=== PATIENT | female | born 1955 | race Caucasian/White ===

== ENCOUNTER 2016-06-12 20:22 | Inpatient (IN) | payer BC ==
[~2016-06-12] VITALS: Ht 162.6 cm; Wt 42.3 kg
--- NOTE | ~2016-06-12 | DS ---
PATIENT'S NAME: JOAQUIN REEDER [facility] AGE: 61 Y [address] ROOM: [address] [place], [place] [address] LOCATION: GPCU ADMIT DATE: 06/12/2016 Discharge Summary DISCHARGE DATE: 06/30/2016 FAMILY PHYSICIAN: Enoc Ba MD ATTENDING PHYSICIAN: Mathieu Hayes V ADDENDUM: PRINCIPAL DIAGNOSES: 1. Gram-negative bacteremia. 2. Acute hypoxic respiratory failure secondary to bacterial pneumonia. 3. Bacterial pneumonia. 4. Achromobacter bacteremia. 5. Gastric mass. BRIEF HOSPITAL COURSE: This is a 61-year-old female who came in with respiratory failure and sepsis picture and known to have pleural effusion and pneumonia, and her right lung status post chest tube placement and drainage. Cultures of the pleural fluid growing Streptococcus. The patient also grew Achromobacter in her blood stream as well. The patient had been getting multiple broad-spectrum antibiotics and is currently on meropenem which the Achromobacter bacteremia is sensitive to. The patient is going to continue to get these antibiotics through a PICC line upon transfer to TCU. Infectious Disease to follow during her stay at TCU as well. For details of her hospital stay, please refer to Dr. Branham's discharge summary that was done a few days ago. During my evaluation today, the patient is lying in the chair, awake, alert, and oriented, although somewhat lethargic and deconditioned. Denies any chest pain or shortness of breath. DISPOSITION: Discharged to TCU. Greater than 30 minutes spent on discharge planning and facilitating. MD TRINA FERGUSON/dalia /[id number] d: 07/01/16 1130 t: 07/21/16 0927, DISCHARGE SUMMARY
--- NOTE | ~2016-06-12 | OR ---
PATIENT'S NAME: JOAQUIN REEDER [facility] AGE: 61 Y [address] ROOM: [address] [address] LOCATION: GPCU ADMIT DATE: 06/12/2016 OR/Procedure Report DISCHARGE DATE: 06/30/2016 FAMILY PHYSICIAN: Enoc Ba MD ATTENDING PHYSICIAN: Mathieu Hayes V SURGEON: Jamie Raines DO SUPERVISOR CASE LOADING: DATE OF PROCEDURE: 06/15/2016 PREOPERATIVE DIAGNOSIS: Loculated right pleural effusion, likely parapneumonic. POSTOPERATIVE DIAGNOSES: Loculated right pleural effusion, likely parapneumonic plus empyema. PROCEDURE: Right thoracoscopy with drainage of effusion and division of loculations. REFERRING PHYSICIAN: Pepe Muhammad MD. BRIEF HISTORY: Mrs. Reeder is a 61-year-old white female with the above-noted diagnosis. DESCRIPTION OF PROCEDURE: She had been brought to the operative suite today, sterilely prepped and draped in the usual fashion for right thoracoscopy. She was intubated with a dual-lumen endotracheal tube, placed in the lateral decubitus position for a thoracoscopy. Our 1st port incision was made approximately 3 fingerbreadths below the scapular tip in between the mid and anterior axillary lines. Finger sweep yielded loose adhesive processes. Fluid suction was placed and fluid was aspirated, sent for culture and cytology. The scope was introduced. Diffuse inflammatory process was going on with multiple loculations, mostly gelatinous in nature. There was some evidence of purulence in the pleural space. Two accessory incisions were made anteriorly and posteriorly, and through these, we performed our division of loculations and irrigation of the pleural space. We achieved good freeing up of the lower lobe and upper lobe as well. The space was thoroughly irrigated with approximately 6 L of fluid and then chest tube was placed without difficulty. Ventilations were initiated. Incisions were closed in a layered fashion. Chest tube was secured to the anterior chest wall, and the patient was extubated and transferred to the recovery area in stable condition. JAMIE RAINES DO PATIENT'S NAME: JOAQUIN REEDER [facility] AGE: 61 Y [address] ROOM: [facility] [place], [place] [address] LOCATION: GPCU ADMIT DATE: 06/12/2016 OR/Procedure Report DISCHARGE DATE: 06/30/2016 FAMILY PHYSICIAN: Enoc Ba MD ATTENDING PHYSICIAN: Mathieu Hayes/dalia /[id number] d: 07/01/16 1650 t: 07/02/16 1240, OPERATIVE SUMMARY
--- NOTE | ~2016-06-12 | CON ---
PATIENT'S NAME: JOAQUIN REEDER [facility] AGE: 61 Y [address] ROOM: [address] [address] LOCATION: GPCU ADMIT DATE: 06/12/2016 Consultation DISCHARGE DATE: FAMILY PHYSICIAN: FRANKLIN RUBIO MD ATTENDING PHYSICIAN: LISSET CABA V DATE OF CONSULTATION: 06/17/2016 REFERRING PHYSICIAN: Reed Mcgrath MD REFERRING PHYSICIAN: Lisset Caba M.D. REASON FOR CONSULTATION: Right empyema. HISTORY OF PRESENT ILLNESS: This is a 61-year-old lady with extensive past medical history including COPD, steroid dependency, and extremely brittle bones. About 2 months ago, she had pneumonia and broke a number of ribs while coughing, and had extensive hospitalization and discharged. The patient actually has not improved back to baseline. She has had weakness and not eating much and then getting progressively more tired and shortness of breath. So on June 12, 2016, went to the emergency room in [place]. CT scan showed right-sided loculated pleural effusion, so referred to [facility], seen by CT surgeon, had a right-sided VATS on June 15, 2016. On admission, blood culture obtained, but nothing grew. From the VATS, the pleural fluid culture grew Streptococcus anginosus, which is sensitive to ceftriaxone and penicillin and vancomycin. Currently, the patient is on IV ceftriaxone. The patient has a history of penicillin allergy, but tolerating ceftriaxone, and also history of adverse reaction after taking Levaquin. Today, the patient is still weak, coughing up mucus, but no fever. Had a chest pain on the right side. No abdominal pain. No nausea or vomiting. Had an NG tube with tube feeding. No diarrhea. ID consultation requested for antibiotic management. PAST MEDICAL HISTORY: History of diabetes, COPD, asthma, steroid dependency, hypothyroidism, history of oral thrush, hyperlipidemia, and recent fracture of multiple ribs on the left side. ALLERGIES: PENICILLIN CAUSING HIVES. LEVOFLOXACIN CAUSING TORN ACHILLIS TENDON. MEDICATIONS: Antibiotic kaiser, IV ceftriaxone from yesterday and cefepime from to and fluconazole since . Also, vancomycin from through . PATIENT'S NAME: JOAQUIN REEDER [facility] AGE: 61 Y [address] ROOM: [place] [address] LOCATION: GPCU ADMIT DATE: 06/12/2016 Consultation DISCHARGE DATE: FAMILY PHYSICIAN: FRANKLIN RUBIO MD ATTENDING PHYSICIAN: LISSET CABA V SOCIAL HISTORY: History of smoking, but quit months ago. FAMILY HISTORY: Noncontributory. REVIEW OF SYSTEMS: GENERAL: Fever negative. Chills negative. HEENT: Headache negative. PULMONARY: Cough positive. Sputum positive. CARDIOVASCULAR: Chest pain negative. GI: Abdominal pain negative. Nausea negative. No diarrhea. MUSCULOSKELETAL: Joint pain negative. PHYSICAL EXAMINATION: VITAL SIGNS: Blood pressure 142/75, pulse rate 107, respirations 20, and temperature 98.2. No fever since admission. GENERAL: In [id number]-hexasdya distress. HEENT: Conjunctivae pink. Sclerae not icteric. Also noted mild oral thrush on oral exam. NECK: Supple. LUNGS: Right lung has rhonchi and wheezing noted. HEART: Regular rhythm and rate. ABDOMEN: Bowel sounds positive. No tenderness or rebound tenderness. BACK AND EXTREMITIES: Lower extremity swelling noted. SKIN: No rash noted. LABORATORY DATA: White blood cell 20.0, hemoglobin 8.8, platelets 489. Chemistry: BUN 7, creatinine 0.3. LFT unremarkable. Microbiology: Blood culture on 12 of June no growth and 15 of June showed right empyema. Culture grew Streptococcus anginosus, sensitive to vancomycin, levofloxacin, ceftriaxone, and penicillin. AFB smear negative. Culture pending. Fungal smear negative. ASSESSMENT AND PLAN: This patient is a 61-year-old lady with chronic obstructive pulmonary disease, presented with right empyema status post VATS and culture from the OR grew Streptococcus anginosus sensitive to levofloxacin, ceftriaxone, penicillin, and vancomycin. The patient had a history of penicillin allergy, but tolerating the ceftriaxone at this point, history of adverse reaction from the levofloxacin. No fever noted, but white blood cell still elevated, still chest tube in place. RECOMMENDATIONS: PATIENT'S NAME: JOAQUIN REEDER [facility] AGE: 61 Y [address] ROOM: [place] [address] LOCATION: GPCU ADMIT DATE: 06/12/2016 Consultation DISCHARGE DATE: FAMILY PHYSICIAN: FRANKLIN RUBIO MD ATTENDING PHYSICIAN: LISSET CABA V We will continue IV ceftriaxone, but we will increase the dose to 2 grams q.24 hours and we will continue IV ceftriaxone until chest tube removed. Once chest tube removed, then we will change to IV ceftriaxone to oral cefuroxime 500 mg twice a day and will continue 7 more days. Continue fluconazole for oral thrush per primary. MD ROHAN LOGAN/dalia /[id number] d: 06/17/16 1905 t: 06/18/16 0812, CONSULTATION REPORT
--- NOTE | ~2016-06-12 | DS ---
PATIENT'S NAME: JOAQUIN REEDER [facility] AGE: 61 Y [address] ROOM: [id number] [place], [place] [address] LOCATION: GPCU ADMIT DATE: 06/12/2016 Discharge Summary DISCHARGE DATE: FAMILY PHYSICIAN: Enoc Ba MD ATTENDING PHYSICIAN: Mathieu Hayes V This is a discharge summary form date of admission up until June 24, 2016. The remaining part of the discharge summary from there onwards till discharge will be done by the discharging hospitalist. PRIMARY DIAGNOSES: Include: 1. Sepsis from one alpha hemolytic strep in the pleural fluid as well as from Achromobacter bacteremia. 2. Right loculated pleural effusion. 3. Anorexia. 4. Acute hypoxic respiratory failure. 5. Severe protein-calorie malnutrition. 6. Gastric mass. 7. Severe kyphosis with spine fracture. 8. Chronic obstructive pulmonary disease. 9. Chronic back pain. 10. Constipation. PRINCIPAL PROCEDURES DONE FOR THE PATIENT: Includes PICC line placement as well as right thoracoscopy with decortication by Dr. Ham. LABORATORY DATA: On admission, lactic acid was 1.3. On admission, WBC was 25.6, highest level obtained was 29.0, the last on June 24 was 25.4, H and H on admission was 11.9/36.9, on June 24, it was 8.4/27.8. Platelet count on admission was 690, on June 24, it was 836. Sodium on admission was 136, was stable, it was 138 on June 24. Creatinine on admission was 0.3, remained stable up until June 24 it was 0.3. Bicarb on admission was 28, on June 24 was 21. BUN was stable at 8. Magnesium was stable, on admission was 1.1, was stable at 1.8 on June 24. Albumin was 1.8. Hemoglobin A1c was 6.5. INR was 1.0. Prealbumin was 6. TSH was 1.47. Procalcitonin on admission was 0.22, the repeat was 0.21. MICROBIOLOGY: Blood culture x2 sets, no growth after 5 days. Right lung culture heavy growth for Streptococcus anginosus. Right lung no acid-fast observed. Fungal elements were also negative. Fungal culture was no growth. Repeat blood culture, no growth one set, and the other set was positive for Achromobacter xylosoxidans. Urine culture, no growth after 2 days. RADIOLOGY: Chest x-ray on admission was heart and mediastinum are normal with some aortic tortuosity, clear left lung, large right pleural effusion PATIENT'S NAME: JOAQUIN REEDER [facility] AGE: 61 Y [address] ROOM: [facility] [place] [address] LOCATION: GPCU ADMIT DATE: 06/12/2016 Discharge Summary DISCHARGE DATE: FAMILY PHYSICIAN: Enoc Ba MD ATTENDING PHYSICIAN: Mathieu Hayes V including a loculated component lying in the major fissure measuring about 6-[address] abdomen and pelvis large loculated pleural effusion on the right with infrahilar streaky parenchymal changes, atelectasis versus inflammation versus possible neoplastic involvement. Abnormal stomach shows a very markedly thick wall and a large hiatus hernia that appears to have a central mass seen best on slice #15 cannot exclude gastric carcinoma, constipation. Multiple repeated chest x-rays and KUB following Dobbhoff placement tip of catheter lies in the distal esophagus and last CT of the abdomen with contrast improved pleural parenchymal abnormality at the right chest base with decreased loculated fluid and improvement of the streaky parenchymal opacity. Distended gallbladder is a change from prior study. No particular evidence for inflammation, worsening constipation, no new mass or fluid collection in the abdomen or pelvis. HOSPITAL COURSE: For history of present illness, please take a look at the H and P, which was done by Dr. Hayes. The patient was admitted to Progressive Care Unit was managed for complex right loculated pleural effusion. The patient was started on broad-spectrum antibiotics on the first day of stay started on vancomycin, cefepime, and Levaquin and also did get a Pulmonary consult with Dr. Muhammad and also a Cardiothoracic Surgery consult with Dr. Ham. After the patient was reviewed by Dr. Ham, a right thoracoscopy and decortication was scheduled, and the patient was also seen by Dr. Muhammad and agreed with the antibiotics and continue with prednisone and to wean off oxygen. Two days after admission, the patient had the right thoracoscopy done and decortication, which was well-tolerated by the patient without any intraoperative or postop complication. Following the procedure, the patient was put on a ELECTRIC SERVICEMAN pump, which she continued on for about a week, after which it was discontinued. Given the patient's poor p.o. intake, she had a Dobbhoff placed for tube feeding and also had a electrogalvanizing machine operator consult. Given the anorexia, she was started on Megace with a little improvement in her appetite while she was on Dobbhoff feeding. Ultimately, the right pleural fluid culture came back positive for Streptococcus anginosus; and at this point, the patient's vancomycin was discontinued as well as Levaquin and Zosyn and the patient was started on Rocephin and also did get an ID consult. After the patient was evaluated by Infectious Disease doctor, they increased the dose of Rocephin to 2 g daily for 24 hours to be continued for as long as the patient is to have the chest tube in place and plan was that once the chest tube was removed for the patient to be continued on cefuroxime p.o. for 7 more days. However, following the modification in the antibiotics, it was observed that the patient's white cell count started to trend upward for the next 48 hours; and following this, we did get a repeat blood culture even though the patient had no fevers and we decided to restart the patient back on vancomycin; so at this point, the patient was on vancomycin and Rocephin. Following the addition of the vancomycin, there was some trending down in the white cell count; however, 48 hours after the blood culture was obtained, it became PATIENT'S NAME: JOAQUIN REEDER [facility] AGE: 61 Y [address] ROOM: [place] [address] [facility]: 06/12/2016 Discharge Summary DISCHARGE DATE: FAMILY PHYSICIAN: Enoc Ba MD ATTENDING PHYSICIAN: Mathieu Hayes V positive for gram-negative rods and the patient subsequently had the Rocephin discontinued and was put on cefepime until the sensitivity was obtained, which showed Achromobacter, which was sensitive to Zosyn; however, the patient was allergic to penicillin so this was switched to meropenem and awaiting ID evaluation. Following what appeared to be an improvement in the patient's eating while she was on tube feeding, tube feeding was discontinued. However, thereafter, the patient appetite again dipped and so plan was to start the patient on TPN, which was started on June 23. Regarding the complex right loculated pleural effusion, this was managed by Dr. Ham, the patient had her chest tube in place for approximately 8 days after which it was discontinued following resolution of the effusion; and also at the same time too, she had her ELECTRIC SERVICEMAN pump discontinued. However, her anorexia persisted and so the Megace was titrated upwards to 400 b.i.d. On June 24, 2016, clinically, the patient looked more comfortable and was saturating on room air; however, appetite was still pretty poor. Given the elevation in her white cell count, which appeared to be stable at around 24 or 25,000, we did get a repeat CT abdomen and pelvis with IV contrast, which essentially was unchanged except for worsening of constipation and gallbladder distention. Also, of note is that the initial CT abdomen and pelvis, which was done during the time of admission showed some gastric mass for which GI was called and after they reviewed the patient's old chart which included prior colonoscopy done with biopsy as well as EGD, they recommended that plan for right now is just to monitor the patient and the patient will get a repeat EGD 3-6 months after discharge. The remaining part of the discharge summary will be completed by the discharging doctor. MD SUSAN TAMAYO/dalia /[id number] d: 06/25/16 0344 t: 06/27/16 2223, DISCHARGE SUMMARY
--- NOTE | ~2016-06-12 | HP ---
PATIENT'S NAME: JOAQUIN REEDER [facility] AGE: 61 Y [address] ROOM: [place] [address] LOCATION: GPCU ADMIT DATE: 06/12/2016 History & Physical DISCHARGE DATE: FAMILY PHYSICIAN: PHYSICIAN, UNKNOWN ATTENDING PHYSICIAN: LISSET CABA V DATE OF SERVICE: CHIEF COMPLAINT: Shortness of breath. HISTORY OF PRESENT ILLNESS: The patient is a 61-year-old female with an extensive past medical history most significant for COPD, steroid dependency, as well as extremely brittle bones. The patient has been getting progressively more tired and dyspneic with exertion. Today, she went to the ER in [place]. A CAT scan of her chest with contrast did not reveal a PE, but did show a right-sided loculated pleural effusion. Of note, the patient had a hospital stay approximately 2 months ago, where she broke a number of ribs while coughing and required extensive hospitalization. Subsequent to that, she has been getting stronger at home and was seen by her business librarian, Dr. Muhammad, and was found to have an open "a little pneumonia" on her right as reported by the . She was put on Zithromax and initially improved, but subsequently developed current presentation. The history is mostly provided by the as the patient is quite weak. REVIEW OF SYSTEMS: Negative for any nausea, vomiting, chest pain, or palpitations. All systems have been reviewed and are negative aside from pertinent positives mentioned above. PAST MEDICAL HISTORY: Significant for jjk-sqnxujy-lekeqaron diabetes, advanced COPD, asthma, steroid dependency, candidiasis of the mouth, GERD, hypothyroidism, osteoporosis, degenerative joint disease, congenital scoliosis, hyperlipidemia, vitamin D deficiency, recent fracture of multiple ribs on the left-side as above, B12 deficiency, and hyperparathyroidism. CURRENT MEDICATIONS: 1. Xanax 0.25 mg every 6 hours as needed. 2. Atorvastatin. 3. Azithromycin. 4. Cholecalciferol. 5. Ferrous sulfate. 6. Fluconazole. PATIENT'S NAME: JOAQUIN REEDER [facility] AGE: 61 Y [address] ROOM: [place] [address] LOCATION: GPCU ADMIT DATE: 06/12/2016 History & Physical DISCHARGE DATE: FAMILY PHYSICIAN: PHYSICIAN, UNKNOWN ATTENDING PHYSICIAN: LISSET CABA V 7. Advair. 8. Guaifenesin. 9. Dilaudid 4 mg every 6 hours as needed. 10. Levothyroxine 88. 11. Metformin 500 every morning. 12. Morphine sulfate 30 mg p.o. b.i.d. 13. Pantoprazole. 14. Prednisone at varying doses. 15. Lyrica 150 mg p.o. daily. SOCIAL HISTORY: Significant for [id number]. The patient quit smoking several months ago. FAMILY HISTORY: Reviewed and is noncontributory. PHYSICAL EXAMINATION: VITAL SIGNS: At this point, blood pressure is 150s/80s, heart rate is in 90s, and saturation is 94% on 2 L nasal cannula dropping into mid 80s on room air. She is afebrile. GENERAL: Looks like emaciated elderly female in no acute distress. NEUROLOGICAL: Nonfocal. EYES: Shows pupils are 3-mm and reactive. Extraocular muscle movements are intact. LYMPHATIC: Shows no cervical lymphadenopathy. ENDOCRINE: Shows no thyromegaly. LUNGS: Significant for severely diminished breath sounds in all singh with some crackles at the right base. HEART: Rate is regular. No appreciable murmurs, gallops, or rubs. EXTREMITIES: There is 1+ pitting lower extremity edema. GI: Abdomen is scaphoid, soft, nontender, normoactive bowel sounds. : Reveals no costovertebral angle tenderness. VASCULAR: Exam reveals 2+ pedal pulses. MUSCULOSKELETAL: Exam reveals generalized muscle wasting. PSYCHIATRIC: Exam is significant for slightly depressed mood, but preserved cognition and affect. SKIN: Warm and dry. LABORATORY DATA: Review of studies from the outside facility significant for unremarkable EKG and basic metabolic profile shows albumin of 1.9, alk phosphate of 187, and potassium of 3.4. White count is 31,000, hemoglobin is 11.4, and platelets 644. ABG shows pH 7.48, pCO2 39, pO2 85, and bicarb is 29. ASSESSMENT AND PLAN: PATIENT'S NAME: JOAQUIN REEDER [facility] AGE: 61 Y [address] ROOM: [place] [address] LOCATION: GPCU ADMIT DATE: 06/12/2016 History & Physical DISCHARGE DATE: FAMILY PHYSICIAN: PHYSICIAN, UNKNOWN ATTENDING PHYSICIAN: LISSET CABA V This is a 61-year-old female who will be admitted with: 1. Acute hypoxic respiratory failure due to an empyema/loculated pleural effusion. Please note, the CAT scan was also significant for some atelectasis with a bronchial plugging. The patient will be started on broad-spectrum antibiotics. She does carry history of penicillin allergy, but tolerated Rocephin at the outside hospital. We will put on vancomycin, cefepime, and Levaquin. We will draw blood cultures. We will start her on nebulizers [id number]. We will continue her Advair. We will request a Pulmonology consultation for the patient's business librarian Dr. Muhammad or his group. The patient has been discussed with Dr. Ham by the transferring facility who is aware of the patient and will evaluate for possible video-assisted thoracoscopy. 2. Steroid dependence. We will monitor for development of adrenal insufficiency and treat with stress-dose steroids as needed. 3. High-usage of opioids. I will discuss this with the patient and we will carefully dose her opioids and monitor for respiratory depression/sedation. I believe at this point she has developed quite a tolerance given her normal ABG from outside facility. 4. Type 2 diabetes. We will hold off on metformin as she has got contrast. 5. Esophagitis/gastroesophageal reflux disease. We will continue her on Protonix. 6. Severe protein-calorie malnutrition. This is evident by the patient's body mass index of under 19 and albumin of 1.9. We will get a Nutrition consult and provide her with nutritional supplements. 7. Deep vein thrombosis prophylaxis will be pharmacologic as she has a high- risk for developing deep vein thrombosis. 8. Goals of care. The patient requested to be DNR/DNI, but after a discussion with her and her , we agreed that the appropriate course of action would be DNR, but trial of ventilator if necessary. 9. Additional management will depend on clinical course and recommendations from consultants. Time dedicated to this patient encounter is 35 minutes. MD CHERIE BEATTY/dalia /[id number] D: [id number] T: [id number] HISTORY & PHYSICAL
--- NOTE | ~2016-06-12 | CON ---
PATIENT'S NAME: JOAQUIN REEDER [facility] AGE: 61 Y [address] ROOM: [address] [address] LOCATION: GPCU ADMIT DATE: 06/12/2016 Consultation DISCHARGE DATE: FAMILY PHYSICIAN: FRANKLIN RUBIO MD ATTENDING PHYSICIAN: LISSET CABA V DATE OF CONSULTATION: 06/15/2016 REFERRING PHYSICIAN: Reed Mcgrath MD HOSPITAL CONSULTATION REFERRING PROVIDER: Randy Branham MD REASON FOR CONSULTATION: Abnormal CT scan with questionable hiatal hernia mass. HISTORY OF PRESENT ILLNESS: This is a very pleasant, 61-year-old female with extensive past medical history significant for COPD, steroid dependence as well as extremely brittle bones. The patient had presented to the emergency room at [facility] with progressive lethargy as well as dyspnea with exertion. A CT scan of her chest with contrast showed a right-sided loculated pleural effusion. The patient was then transferred to [facility] and underwent a thoracoscopy with Dr. Ham to the right side. We were asked to see in consultation as there was questionable mass within the patient's hiatal hernia with noted thickening of the patient's lower esophagus and stomach. The patient was seen and examined. The patient does appear to be significantly lethargic as all information was gathered from the patient's . The patient denies any dysphagia. She also underwent a recent upper endoscopy performed by Dr. Jamie Ace on 05/15/2016. She was found to have severe gastroesophagitis, a 7-cm sliding hiatal hernia. She also underwent a colonoscopy at that time, though colon was poorly prepped without any obstruction. Biopsies were obtained of the antrum of the stomach showing chronic gastritis with reactive gastropathy. No dysplasia identified. H. pylori stain was negative. The distal esophagus biopsy was also obtained showed squamous mucosa with focal acute esophagitis and reactive changes. No intestinal metaplasia identified or dysplasia seen. The patient's denies any nausea, vomiting, chest pain, or current shortness of breath. He also denies any rosemary abdominal pain that the patient has complained about. PAST MEDICAL HISTORY: 1. Naj-pkmyzay-olujnuyvm diabetes. 2. COPD. PATIENT'S NAME: JOAQUIN REEDER [facility] AGE: 61 Y [address] ROOM: [address] [place] [id number] LOCATION: GPCU ADMIT DATE: 06/12/2016 Consultation DISCHARGE DATE: FAMILY PHYSICIAN: FRANKLIN RUBIO MD ATTENDING PHYSICIAN: LISSET CABA V 3. Asthma, steroid dependency. 4. Fabiola of the mouth. 5. GERD. 6. Hypothyroidism. 7. Osteoporosis. 8. Degenerative joint disease. 9. Congenital scoliosis. 10. Hyperlipidemia. 11. Vitamin D deficiency. 12. Recent fracture of multiple ribs on the left side. 13. Vitamin B12 deficiency. 14. Hyperparathyroidism. PAST SURGICAL HISTORY: 1. Thoracoscopy performed, 06/15/2016. 2. Hysterectomy. 3. Recent upper endoscopy and colonoscopy, 05/15/2016. SOCIAL HISTORY: Significant for 50-pack year history. She quit smoking several months ago. There is no history of alcohol abuse or illicit drug use. FAMILY HISTORY: The patient's father had Alzheimer's. The patient's mother is alive and lives alone at the age of 9898 years old. Negative for any gastrointestinal diseases to their recollection. ALLERGIES: PENICILLINS AND LEVAQUIN. CURRENT MEDICATIONS: Please refer to the medication administration record. REVIEW OF SYSTEMS: A 10-point review of systems was completed. All were negative except for those identified in the history of present illness. PHYSICAL EXAMINATION: GENERAL: A 61-year-old, lying in bed, who appears to be in no acute distress. VITAL SIGNS: Temperature 98.2, pulse of 97, respirations of 22, blood pressure 155/77, and oxygen saturations 97% on room air. SKIN: [place], warm, and dry. No jaundice. HEENT: Head is normocephalic and atraumatic. Pupils are equal, round, and reactive to light. Sclerae are clear. Nonicteric. Oral mucosa is pink and moist. No thyromegaly. PATIENT'S NAME: JOAQUIN REEDER [facility] AGE: 61 Y [address] ROOM: [address] [place] [id number] LOCATION: GPCU ADMIT DATE: 06/12/2016 Consultation DISCHARGE DATE: FAMILY PHYSICIAN: FRANKLIN RUBIO MD ATTENDING PHYSICIAN: LISSET CABA V NECK: Soft and supple. CARDIOVASCULAR: Regular. Normal S1 and S2. RESPIRATORY: Respirations even and unlabored. LUNGS: Clear to auscultation though diminished on the right side. ABDOMEN: Soft, round, nontender, and nondistended. Bowel sounds positive x4 quadrants. MUSCULOSKELETAL: No muscle weakness or atrophy. EXTREMITIES: No clubbing, cyanosis. NEUROLOGIC: The patient is lethargic though answers questions appropriately. LABORATORY DATA AND IMAGING STUDIES: Labs and Diagnostics: Lactate on admission was 1.3. White blood cell count of 18.3, hemoglobin of 10.3, hematocrit of 34.9, and platelets of 526,000. Chemistry panel includes a glucose of 75, BUN of 5, creatinine 0.2, sodium 147, potassium of 3.2, chloride 107, CO2 of 29, albumin of 1.8, phosphorus of 2.1, and magnesium of 1.9. Hemoglobin A1c is 6.5. Prothrombin time is 10.4, INR is 1.0, and PTT of 30. Pre-albumin was 6. A CT scan completed on 06/14/2016 did show lung bases clear on the left. The right showed a large loculated pleural effusion in addition to right lower lobe streaky parenchymal changes that could reflect volume loss or even neoplastic or inflammatory changes. Liver appears normal. Stomach is abnormal. The hinojosa are very thick at the fundus and there was a large hiatal hernia that appears to have a central mass at the diaphragmatic hiatus suspicious for gastric mass. Differentials did include carcinoma and lymphoma. Bowel mesentery was normal except for constipation involving the right colon or right transverse colon. ASSESSMENT AND PLAN: Again this is a very pleasant, 61-year-old female, whom we were asked to see for abnormal CT scan showing a possible central mass located in the patient's hiatal hernia. Her CT scan was reviewed with Dr. Manjarrez with noted wall thickening throughout the patient's stomach. Her upper endoscopy was also reviewed per Dr. Petra Guerrero as well as pathology that all was negative. At this time, the likely findings are related to the hiatal hernia. We do recommend a followup upper endoscopy in 4 to 6 weeks after recovery from the patient's recent thoracoscopy for the loculated pleural effusion. This was discussed with the patient as well as the patient's as they verbalized understanding. Thank you for this consult and for allowing us to participate in the care of this patient. ELIZABETH KUO APRN FOR PETRA GUERRERO MD PATIENT'S NAME: JAOQUIN REEDER [facility] AGE: 61 Y [address] ROOM: [place] [address] LOCATION: [facility] ADMIT DATE: 06/12/2016 Consultation DISCHARGE DATE: FAMILY PHYSICIAN: FRANKLIN RUBIO MD ATTENDING PHYSICIAN: LISSET CABA/dalia /[id number] d: 06/16/16 1550 t: 07/17/16 1102, CONSULTATION REPORT
--- NOTE | ~2016-06-12 | CON ---
PATIENT'S NAME: JOAQUIN REEDER [facility] AGE: 61 Y [address] ROOM: [address] [address] LOCATION: GPCU ADMIT DATE: 06/12/2016 Consultation DISCHARGE DATE: 06/30/2016 FAMILY PHYSICIAN: Enoc Ba MD ATTENDING PHYSICIAN: Mathieu Hayes V DATE OF CONSULTATION: 06/12/2016 REFERRING PHYSICIAN: Reed Mcgrath MD HISTORY OF PRESENTING ILLNESS: I was contacted by Ms. Reeder from [facility], the patient has a history of chronic obstructive pulmonary disease. She has been followed by Dr. Muhammad, the patient has been complaining over the past couple of months with increased shortness of breath and cough. She has been on multiple antibiotics. She had seen Dr. Muhammad, her entry level manufacturing engineer and she was given antibiotic. Chest x-ray revealed possible right lower lobe infiltrate and possible pleural effusion and the patient was put on antibiotic with no improvement. The patient had presented to the emergency department in [facility]. A CT scan of her chest was done. I reviewed the CAT scan personally after I was contacted by Dr. Ba and it look that there was enhancing loculated pleural effusion very suspicious for empyema. Subsequently, the patient was transferred to [facility] for higher level of care, after questioning the patient, the patient has been as said complaining of increased shortness of breath over the past couple of months and she has been losing weight, she also has been battling thyroid issue, with demineralization of her bone. She is an ex-smoker. She denies any recent fever, but she complains of malaise, tiredness, and fatigue and progressive shortness of breath. REVIEW OF SYSTEMS: A 10-point review of system was done and otherwise negative other than mentioned in the history of presenting illness. PAST MEDICAL HISTORY: Includes: 1. Chronic obstructive pulmonary disease. 2. Noninsulin-dependent diabetes mellitus. 3. Candidiasis of the mouth. 4. Gastroesophageal reflux disease. 5. Hypothyroidism. 6. Osteoporosis. 7. Degenerative joint disease. 8. Congenital scoliosis. 9. Hyperlipidemia. 10. Vitamin D deficiency. PATIENT'S NAME: JOAQUIN REEDER [facility] AGE: 61 Y [address] ROOM: [id number] [place], [place] [address] LOCATION: GPCU ADMIT DATE: 06/12/2016 Consultation DISCHARGE DATE: 06/30/2016 FAMILY PHYSICIAN: Enoc Ba MD ATTENDING PHYSICIAN: Mathieu Hayes V 11. History of fracture of multiple ribs on the left side as mentioned above. 12. Hyperparathyroidism. CURRENT MEDICATIONS: Include: 1. Xanax 0.25 mg every 6 hours as needed. 2. Atorvastatin. 3. Azithromycin. 4. Cholecalciferol. 5. Ferrous sulfate. 6. Fluconazole. 7. Advair. 8. Guaifenesin. 9. Dilaudid 4 mg every 4-6 hours as needed. 10. Levothyroxine. 11. Metformin. 12. Morphine. 13. Pantoprazole. 14. Prednisone. 15. Lyrica. SOCIAL HISTORY: Significant for 50 pack years. The patient quit smoking several months ago. FAMILY HISTORY: Reviewed with no significant family history of lung cancer. Her mother is alive, lives alone, and is 98 years old. Father of Alzheimer's. PAST SURGICAL HISTORY: She had a hysterectomy. PHYSICAL EXAMINATION: GENERAL: Upon initial evaluation, the patient is lying in bed. She is cachectic small lady, does not appear in severe respiratory distress, but she appears tachypneic. VITAL SIGNS: Included SpO2 is 94% on 2 L, her blood pressure is 150/80, heart rate is in the 90s. She is afebrile. EYES: Nonicteric. Pupils are equal, reactive to light and accommodation. HENT: Normocephalic, atraumatic. Wet mucous membranes. No ear or nasal discharge. NECK: Supple. No lymphadenopathy. No jugular venous distention. LUNGS: Decreased air entry on the right with dullness to percussion on the right side with diminished air entry although on the left side. HEART: S1, S2. No murmurs, rubs, or gallops appreciated. PATIENT'S NAME: JOAQUIN REEDER [facility] AGE: 61 Y [address] ROOM: [id number] [place], [place] [address] LOCATION: GPCU ADMIT DATE: 06/12/2016 Consultation DISCHARGE DATE: 06/30/2016 FAMILY PHYSICIAN: Enoc Ba MD ATTENDING PHYSICIAN: Kaganas,Mathieu V ABDOMEN: Soft, nontender, no palpable organs. LOWER EXTREMITIES: No edema. There is +1 pitting edema. No clubbing or cyanosis. VASCULAR: Reveals +2 pedal pulses. MUSCULOSKELETAL: Generalized muscle weakness. LABORATORY DATA: The review of laboratory from outside facility includes unremarkable EKG, BMP shows albumin of 1.9, alkaline phosphate is 107, potassium [place] 3.4[place] [address], hemoglobin is 11.4, and platelets 644. ABG shows pH of 7.48, pCO2 of 39, PO2 of 85, and bicarb of 29. CT scan was reviewed by me also, which revealed an enhancing loculated pleural effusion suspicious for empyema. IMPRESSION: Acute hypoxic respiratory failure. Possible empyema and loculated pleural effusion. At the current point, we will start the patient on broad-spectrum antibiotic including Zyvox, piperacillin/tazobactam, and Levaquin. Cardiothoracic surgery consultation will be obtained secondary to video- assisted thoracoscopic surgery and evacuation. Dr. Jamie Ham was contacted and we will see the patient. Severe chronic obstructive pulmonary disease, currently stable. I do believe the patient has an acute exacerbation. I do believe she has empyema and subsequently she will be treated as such. RECOMMENDATIONS: 1. As mentioned above, we will continue antibiotic. 2. We will start low-dose suspension. 3. VATS as soon as possible. Dr. Jamie Ham probably will take the patient tomorrow. 4. We will continue follow up with you. Thank you for allowing me to participate with this patient. MD ERIS GARNER/dalia /[id number] d: 07/02/16 1709 t: 07/07/16 1251, CONSULTATION REPORT
--- NOTE | ~2016-06-12 | CON ---
PATIENT'S NAME: JOAQUIN REEDER [facility] AGE: 61 Y [address] ROOM: [id number] [place], [place] [address] LOCATION: GPCU ADMIT DATE: 06/12/2016 Consultation DISCHARGE DATE: FAMILY PHYSICIAN: FRANKLIN BA MD ATTENDING PHYSICIAN: LISSET CABA V REFERRING PHYSICIAN: Reed Mcgrath MD Consult to Dr. Temple. REASON FOR CONSULTATION: Joaquin Reeder is a 61-year-old woman with longstanding leukocytosis, thrombocytosis, and somewhat more recent onset of anemia. The consulting hospitalist is concerned the patient has leukemia. HISTORY OF PRESENT ILLNESS: Obtained from Mr. Reeder who is a good historian; Mrs. Reeder who was also a good historian, but somewhat weak; from review of the records forwarded by our colleagues from [place], [place]; from review of the [facility] records; and review of the extensive [facility] record. On 06/25/2016, her white count was 24,600 with 85% neutrophils and 8% lymphocytes. The hemoglobin was 8.3 g/dL, the MCV 82, and the platelets 835,000. Upon admission, on 06/12/2016, the white count was 25,600 with 86% segs and 1% bands. The hemoglobin was 11.1 g/dL, the MCV was 81, and the platelets were 69,000. On 04/08/2012, on a CBC with differential obtained at the [facility], white count was 14,200 with 66% neutrophils and 23% lymphocytes. The hemoglobin was 12.1 g/dL, the MCV was 89, and the platelets were 552,000. The total protein was low at 6.3 g/dL, but the rest of the general chemical profile was unremarkable. The triglycerides were 236 mg/dL, the cholesterol 238 mg/dL, and the LDL cholesterol 112 mg/dL. The glycosylated hemoglobin was 6.6%. The 25-hydroxy D level was low at 23 mg/dL. The patient was seen by Dr. Phani Betancur in Hematology consultation to review the uncharacterized anemia, leukocytosis, and thrombocytosis on 04/28/2016. Multiple records were forwarded including the aforementioned laboratory records. An upper GI endoscopy and colonoscopy had been performed on 03/02/2013 in [place], which revealed a diaphragmatic hernia with distal esophagitis, colon polyp at the cecum, and multiple colon polyps at the sigmoid colon as well as small internal hemorrhoids. The colon biopsy revealed a tubular adenoma in the sigmoid colon and cecum. Esophageal biopsies revealed squamous mucosa with mild reactive changes compatible with gastroesophageal reflux disease. The CBC with differential on 04/16/2016 [place] [address] with a predominance of neutrophils. The hemoglobin was 7 g/dL, the MCV was 71, the platelets were 1,033,000. The reticulocyte count was 3.1% with a corrected reticulocyte count of 1.9% and a reticulocyte production index of 1%. The peripheral smear was reviewed and PATIENT'S NAME: JOAQUIN REEDER [facility] AGE: 61 Y [address] ROOM: [id number] [place] [id number] LOCATION: GPCU ADMIT DATE: 06/12/2016 Consultation DISCHARGE DATE: FAMILY PHYSICIAN: FRANKLIN BA MD ATTENDING PHYSICIAN: LISSET CABA V just revealed a hypochromic microcytic anemia with thrombocytosis and leukocytosis with neutrophilia and monocytosis. 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 There was hyperinflation of the lungs with mild emphysematous changes. There were chronic ununited fractures involving the posterior right 11th and 12th ribs, partially healed fractures involving the posterior right 5th, 6th, and 7th ribs as well as lateral right 8th rib. There was worsening rightward thoracic scoliosis with interval depression of a marked compression fracture deformity to the mid to lower thoracic vertebral body, which appeared to be T8 with mild retropulsion, without critical spinal stenosis. On 04/21/2016, the iron was 29 ug/dL, the iron binding capacity was 392 ug/dL with a transferrin saturation of 7%. The ferritin was 13 ng/mL. The B12 was low at 199 pg/mL, and the serum folate was normal at 11 ng/dL. On 04/22/2016, a CAT scan of the abdomen and pelvis was just remarkable for small bilateral pleural effusions and a diaphragmatic hernia and compression deformities in the T12 and L2 vertebral bodies. Calcified plaque was present in the aorta. A bone scan on 04/22/2016 revealed multiple foci of abnormal activity in the ribs, mid thoracic spine, and upper lumbar spine corresponding to the areas of fracture. Dr. Betancur reviewed this laboratory work on 04/28/2016 and obtained other laboratory. Dr. Betancur obtained a rheumatoid factor which was less than 11 IU/mL and was normal. The haptoglobin was elevated at 287 mg/dL. The parathyroid hormone level was elevated at 81.49 pg/mL. An LDH was 680 U/L with the upper limits of normal being 618. The white count was 29,390. The hemoglobin was 11.4 g/dL, the MCV was 77, and the platelets were 671,000. The manual differential revealed the patient had 92% segs, 4% lymphocytes, 1% monocytes, and 2% bands. Dr. Betancur agreed with the recommendation for iron and vitamin B12 replacement. He agreed with the upper GI endoscopy and colonoscopy. He recommended the patient take calcium and vitamin D replacement as well as denosumab. He made the point a serum protein electrophoresis was normal. He told the patient metastatic cancer to the bone was unlikely. The upper GI endoscopy and colonoscopy were performed on 05/15/2016 and the gross findings were compatible with a 7-cm sliding diaphragmatic hernia and severe gastroesophagitis. The patient's colonoscopy prep was poor. Dark fecal material and solid stool contents were present throughout the colon. The scope was advanced to the cecum. No large masses were identified, and no pathology was identified other than infrequent diverticulosis. On 05/20/2016, Dr. Betancur saw the patient in followup. Dr. Betancur recommended PATIENT'S NAME: JOAQUIN REEDER [facility] AGE: 61 Y [address] ROOM: [address] [address] LOCATION: GPCU ADMIT DATE: 06/12/2016 Consultation DISCHARGE DATE: FAMILY PHYSICIAN: FRANKLIN BA MD ATTENDING PHYSICIAN: LISSET CABA V no further workup. At the time of that visit, the hemoglobin had improved to 11.8 g/dL and the white count was 20,660. The platelets had fallen to 552,000. The patient was in her normal state of health for her in February 2016. 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 She had no formal or informal exercise or rehabilitation program. She could drive the car. She developed dyspnea on exertion if she walked more than 2 blocks, but did not need a cane or a walker. She did not vacuum the house, but otherwise performed all the other household tasks. In March, the patient tripped over their dog's leash, developed a severe cough and had to be hospitalized in [place]. It is felt her fractured ribs and thoracic vertebra were probably related to the fall and cough. To compound her misery, she was dealing with a detached retina which had interfered with her driving. The patient was discharged from the [facility] after treatment for pneumonia and in the week of the Super Bowl was doing somewhat better. Following the Super Bowl, the patient developed progressive dyspnea. She saw Dr. Muhammad who prescribed azithromycin, but her dyspnea on exertion worsened. She reported to the emergency room in [place] where her physician, Dr. rFanklin Ba obtained a CAT scan of the chest and documented a loculated pleural effusion in the right pleural cavity. The patient was anorexic and has lost 20 pounds since her fall and has dyspnea at rest. She was producing sputum, but less than a teaspoon of thick sputum a day. The patient was transferred to [facility] where she was admitted for acute hypoxic respiratory failure. On 06/15/2016, right video-assisted thoracoscopic surgery was performed and a Streptococcus anginosus empyema was noted. The patient's antibiotic spectrum was narrowed to ceftriaxone. Gastroenterology was consulted and recommended a followup upper GI endoscopy 4-6 weeks after 06/16/2015 because of concern about a mass noted on a CAT scan in the esophageal region. They were reassured that an earlier upper GI endoscopy had not revealed any sign of cancer. On 06/23/2016, the chest tube was removed. The patient's white count sundeep, so blood cultures were obtained on 06/20/2016 and revealed a peak Achromobacter xylosoxidans that was sensitive to meropenem, but resistant to ceftriaxone. The patient is currently on meropenem, nystatin, and fluconazole, and will be transferred to a level of care to convalesce. She still complains of dyspnea at rest and can only walk with a walker and standby assist. She is still producing less than a teaspoon of thick clear sputum a day. She continues to PATIENT'S NAME: JOAQUIN REEDER [facility] AGE: 61 Y [address] ROOM: [address] [address] LOCATION: GPCU ADMIT DATE: 06/12/2016 Consultation DISCHARGE DATE: FAMILY PHYSICIAN: FRANKLIN BA MD ATTENDING PHYSICIAN: LISSET CABA V have chronic long-standing heartburn and chronic constipation. Active problems, chronic and diagnosed: 1. Steroid-related osteoporosis, first documented in 2006. The patient has been on teriparatide, alendronate, and possibly denosumab. 2. Chronic obstructive lung disease with an asthma component noted in 1996. The patient has been steroid dependent for years. 3. 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 The patient checks her Accu-Cheks at home and her sugars have been reasonably well controlled. She reports no end-organ damage. 4. Colonic diverticulosis noted on colonoscopy. 5. Hypothyroidism noted in 2001. 6. Hyperlipidemia noted in 2014. 7. Protein calorie malnutrition. The patient's prealbumin upon admission to the hospital was 6 mg/dL. 8. Diaphragmatic hernia, associated with severe gastroesophagitis on upper GI endoscopy in April 2016. 9. Depression, treated with venlafaxine. 10. Osteoarthritis. The patient states this is "minor.". 11. Colonic polyposis. As noted, the patient had a tubular adenoma in the sigmoid colon and cecum on a colonoscopy performed 04/16/2012. 12. Hypovitaminosis D, noted in 2012. 13. Vitamin B12 deficiency noted in March 2016. 14. Atherosclerotic heart disease and atherosclerotic vascular disease with coronary artery calcifications and plaque noted on CAT scan of the chest. 15. Elevated parathyroid hormone level noted in 2011. 16. (?)Cholelithiasis noted on CT scan. 17. Perennial rhinitis. 18. Chronic recurrent Fabiola mucositis. 19. Tobacco use. The patient has smoked 1 pack per day of Cambria for 35 years, but has abstained throughout 2017. ACUTE MEDICAL ILLNESSES (RESOLVED), PAST SURGERIES, INJURIES: 1. 1991, G1, P0, AB1. 2. 1992-total abdominal hysterectomy and bilateral salpingo-oophorectomy for benign ovarian cyst. 3. 2006-right and left cataract extraction. 4. 2016-detached left retina, requiring 2 surgical procedures. 5. 2015-hospitalization in [place] for pneumonia and violent paroxysmal cough leading to rib and thoracic spine fractures. 6. 2017-hospitalization for treatment of empyema. MEDICATIONS UPON ADMISSION: 1. Albuterol inhaler. 2. Alprazolam. [facility] AGE: 61 Y [address] ROOM: [id number] [place] [id number] LOCATION: GPCU ADMIT DATE: 06/12/2016 Consultation DISCHARGE DATE: FAMILY PHYSICIAN: FRANKLIN BA MD ATTENDING PHYSICIAN: LISSET CABA V 3. Atorvastatin. 4. Azithromycin. 5. Calcium carbonate. 6. Cholecalciferol. 7. Cyanocobalamin 1000 mcg IM every 30 days. 8. Ferrous sulfate 325 mg p.o. t.i.d. 9. Fluconazole 100 mg p.o. daily. ADVERSE REACTIONS TO MEDICATIONS, TRANSFUSIONS, ALLERGIES: 1. Penicillin associated with hives. 2. Fluoroquinolones associated with Achilles tendon rupture. 3. The patient had packed red blood cell transfusions in [place] in March 2016. TOBACCO: 1/2 pack per day for 35 years, [facility], abstained since March 2017. ALCOHOL: 1. None since 1986. 2. The patient rarely consumed alcohol prior to 1986, but did not totally abstain. CAFFEINE: Two cups coffee per day. IMMUNIZATIONS: 1. Positive influenza virus vaccine. 2. Positive pneumococcal vaccine. 3. Negative tetanus toxoid booster. 4. Positive varicella zoster virus vaccine. FAMILY HISTORY: Negative for hematologic or oncologic disorders. SOCIAL HISTORY: The patient was born and raised a [place], [place]. She went to college for a year. 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 They have a 27-year-old adopted daughter who lives in [place], [place]. They are [employer]. REVIEW OF SYMPTOMS: Otherwise unremarkable. The patient was unaware she had any abnormalities of her peripheral blood work until she saw Dr. Betancur in April. PATIENT'S NAME: [facility] AGE: 61 Y [address] ROOM: [id number] [place], [place] [address] LOCATION: GPCU ADMIT DATE: 06/12/2016 Consultation DISCHARGE DATE: FAMILY PHYSICIAN: FRANKLIN BA MD ATTENDING PHYSICIAN: LISSET CABA V PHYSICAL EXAMINATION: VITAL SIGNS: Pulse 96 and regular, blood pressure 130/75, respiratory rate 18, temperature 98.2. Height upon admission on 06/13/2016 64 inches, weight 43 kg, 95 pounds, BMI 16.2 kg/m2. GENERAL: Well-developed, underweight, chronically ill, 61-year-old, female who appears older than her stated age. HEENT: Unremarkable. LYMPH NODES: None palpable. NECK: Without JVD or carotid bruits. CHEST: Decreased breath sounds. Well-healed incision site where the chest tube in place. CV: Decreased S1, S2. No murmurs, bruits, or adventitious sounds. BREASTS: Not examined. ABDOMEN: Healed hysterectomy scar. Bowel sounds present but decreased. No masses, tenderness, or organomegaly, although the patient is examined sitting in her chair. EXTREMITIES: Lower extremity varicosities. Ulnar deviation of the right 2nd through 5th metacarpophalangeal joints. NEURO: The patient moves all 4 extremities and is alert and appropriate. IMPRESSION: 1. A 61-year-old woman with a 4-year plus history of leukocytosis and thrombocytosis, a 3-month history of hypoplastic generally normocytic anemia, a documented B12 and iron deficiency, an elevated C-reactive protein, seen during hospitalization for evaluation and treatment of a Streptococcus anginosus empyema and Achromobacter xylosoxidans bacteremia. The patient has been on longstanding steroids generally 10- 20 mg a day for reactive airways disease and has a history of severe gastroesophagitis. There has been no documentation of blood loss. 2. Multifactorial anemia due to a low iron, low B12, inflammation, and possible blood loss. 3. Neither the cause of the low B12 nor the iron deficiency has been characterized. The patient may have malabsorption. 4. The thrombocytosis could be aggravated by the inflammation, but given its duration and its presence 4 years ago when the patient did not have an evident inflammatory disorder, the possibility of a concurrent myeloproliferative disorder exists. 5. The chance of chronic myelogenous leukemia seems low and the chance of acute leukemia seems nil. 6. The osteoporosis and bone fractures and back pain are probably completely related to her long-standing steroids. Of course, osteoporosis and normocytic anemia can be associated with immunoproliferative disorders. It is encouraging a serum protein electrophoresis has apparently been unremarkable, although that result is not available on the record. 7. It is reasonable to work up the possibility of malabsorption and rule out PATIENT'S NAME: JOAQUIN REEDER [facility] AGE: 61 Y [address] ROOM: [place] [address] LOCATION: [facility] ADMIT DATE: 06/12/2016 Consultation DISCHARGE DATE: FAMILY PHYSICIAN: FRANKLIN BA MD ATTENDING PHYSICIAN: LISSET CABA V myeloproliferative or immunoproliferative disorders that conceivably could be contributing to her problems. However, her long-standing steroids and inflammatory condition could be entirely responsible for the anemia, leukocytosis, and thrombocytosis. RECOMMEND: 1. Diagnostic:. a. Hemoccult stools x3. b. Serum protein electrophoresis and serum free light chains. c. JAK2 mutation assay. d. Anti-intrinsic factor and antiparietal cell antibodies. e. Quantitative immunoglobulins. f. Tissue transglutaminase antibody IgA. 2. Treatment:. a. No change in current treatment. 3. Patient education:. a. Discussed the differential diagnosis of her anemia, low iron, and B12. b. Acknowledged we cannot prove a negative, but told her it seemed very unlikely she has a hematologic or oncologic disorder that will significantly shorten her life span. This possibility was on her mind. REED LARSON MD GKB/modl /[id number] CC: MD Franklin Sandoval MD William Terrell, MD d: 06/27/161926 t: 06/29/161854, CONSULTATION REPORT
--- NOTE | ~2016-06-12 | CON ---
PATIENT'S NAME: JOAQUIN RE[facility] AGE: 61 Y [address] ROOM: [id number] [place], [place] [address] LOCATION: GPCU ADMIT DATE: 06/12/2016 Consultation DISCHARGE DATE: FAMILY PHYSICIAN: FRANKLIN RUBIO MD ATTENDING PHYSICIAN: LISSET CABA V DATE OF CONSULTATION: 06/24/2016 LOCATION: [facility], [facility]. REFERRING PHYSICIAN: Randy Branham MD This is a palliative care consult for patient and family support. HISTORY OF PRESENT ILLNESS: This 61-year-old female was admitted on 06/12/2016 with increasing shortness of breath. She has had a decline since right after Price and was hospitalized on April 20 for falls. She was admitted to the [facility], had decreased appetite, declined, but did get feeling better, was gaining weight, and went home, was doing well until after the [place] republican. She began to have more shortness of breath, not eating, had seen Dr. Muhammad, and was found to have pneumonia, was put on Zithromax, improved a little, and then just continued to decline, getting weaker and not eating, and was admitted to [facility] on 06/12. She has a known history of COPD with steroid dependency, extremely brittle bones. Currently, denies any nausea or vomiting. Just does not feel like eating anything. Complains of some back and right side pain, achy, constant. Has taken narcotics in the past. Was recently changed to Nucynta routinely. Gets very short of breath with much exertion. Complains of severe fatigue, and any activity makes her very weak and tired. She has a recent history of multiple rib fractures on the left side, and CT showed compression fracture, mid thoracic vertebrae, vertebral body on T8. PAST MEDICAL HISTORY: Non insulin-dependent diabetes, advanced COPD, asthma, steroid dependency, candidiasis of the mouth, GERD, hypothyroidism, osteoporosis, degenerative joint disease, congenital scoliosis, hyperlipidemia, vitamin D deficiency, recent fracture of multiple ribs on the left side, B12 deficiency, and hypoparathyroidism. CURRENT MEDICATIONS: 1. Megace 400 mg b.i.d. PATIENT'S NAME: JOAQUIN [facility] AGE: 61 Y [address] ROOM: [address] [place] [id number] LOCATION: GPCU ADMIT DATE: 06/12/2016 Consultation DISCHARGE DATE: FAMILY PHYSICIAN: FRANKLIN RUBIO MD ATTENDING PHYSICIAN: LISSET CABA V 2. Bisacodyl 10 mg suppository p.r.n. constipation. 3. Meropenem 500 mg IV. 4. TPN lipids. 5. Nucynta 50 mg t.i.d. 6. Lexapro 2.5 mg daily. 7. Melatonin 3 mg at h.s. 8. Ondansetron 4 mg a.c. IV. 9. Ipratropium albuterol inhalation q.i.d. 10. Prednisone 5 mg daily. 11. MiraLAX 17 g daily. 12. Acetaminophen and hydrocodone or [place] 5/325 two tablets every 4 hours p.r.n. 13. Insulin moderate sliding scale. 14. Heparin 5000 units b.i.d. 15. Atorvastatin 40 mg daily. 16. Fluconazole 100 mg daily. 17. Pregabalin 150 mg daily. 18. Levothyroxine 88 mcg daily. 19. Dulera 200 mcg inhalation b.i.d. 20. Florastor 200 mg b.i.d. 21. Acetaminophen 650 mg daily. 22. Guaifenesin 1200 mg b.i.d. 23. Protonix 40 mg b.i.d. ALLERGIES: PENICILLINS AND LEVOFLOXACIN. SOCIAL HISTORY: She is , lives at [place], has one adopted daughter who lives in [place]. Smoking history: 16-kgoq-mxk-year history, quit in March 2016. Alcohol: No alcohol use. FAMILY HISTORY: Mother is alive, lives alone, and is 98 years old. Father of Alzheimer's. PAST SURGICAL HISTORY: She had a hysterectomy. REVIEW OF SYSTEMS: Done and is negative except as mentioned in the HPI and listed below. HEENT: Denies any soreness in her mouth. Does have a history of thrush. Has been on fluconazole for her thrush. No difficulty swallowing. RESPIRATORY: She is very short of breath with much exertion. CARDIAC: No chest pain or chest palpitations. PATIENT'S NAME: JOAQUIN [facility] AGE: 61 Y [address] ROOM: [address] [place], [place] [address] [facility] ADMIT DATE: 06/12/2016 Consultation DISCHARGE DATE: FAMILY PHYSICIAN: FRANKLIN RUBIO MD ATTENDING PHYSICIAN: LISSET CABA V GASTROINTESTINAL: No nausea or vomiting. Currently, does get nauseated in the morning. Last bowel movement was on 06/23. No diarrhea or constipation. PSYCHIATRIC: Does have a history of some depression. Very depressed since been in the hospital quite a bit since 1st of the year and is not getting better. Gets tearful. Had been on Effexor at home and had some instances of shaking with her feet prior to being on, was recently switched to Lexapro. Gets very teary eyed when talking about condition. Does not feel like she is going to get better. States if she does not get stronger, does not want to live like this. PHYSICAL EXAMINATION: GENERAL: This is a frail, 61-year-old female. VITAL SIGNS: Temperature 98.2, pulse 99, respirations 26, blood pressure 139/74, and O2 saturation is 98%. GENERAL: Alert and oriented, in no acute distress. SKIN: Warm and dry. Color pale. HEENT: Head is normocephalic and atraumatic. Sclerae are nonicteric. Conjunctivae pale and pink. Mouth is pink and moist. White patches noted on tongue and cheeks. LYMPHATIC: No cervical adenopathy or thyromegaly. RESPIRATORY: Coarse bilaterally. Diminished. Breath sounds even and regular at rest. CARDIAC: S1 and S2 without murmurs or bruits. No lower extremity edema. ABDOMEN: Soft and nontender. Positive bowel tones. No hepatosplenomegaly. NEUROLOGIC: Grossly intact. No focal deficits. MUSCULOSKELETAL: Appropriate range of motion without deficit. Decreased muscle mass. Tires easily with ambulation. EXTREMITIES: No cyanosis or deformities. Palliative Performance Scale is 50%, mainly sitting and lying, unable to do most activity, total care, minimal to sips intake. Conscious level is full. IMPRESSION: 1. Depression. 2. Weakness. 3. Fatigue. 4. Dyspnea. 5. Oral candidiasis. PLAN: Met with the patient and her . Discussed the patient's overall condition declining since [place], patient's feeling just not getting better, etc. The patient and have a good understanding of her chronic condition, her chronic obstructive pulmonary disease. PATIENT'S NAME: [facility]IN [facility] AGE: 61 Y [address] ROOM: [address] [place], [place] [address] LOCATION: GPCU ADMIT DATE: 06/12/2016 Consultation DISCHARGE DATE: FAMILY PHYSICIAN: FRANKLIN RUBIO MD ATTENDING PHYSICIAN: LISSET CABA V DISCUSSION OF GOALS: 1. To try to get to eating more so she will get stronger. 2. To go to a [facility] place to try to increase strength so she can get back home. The patient is on the TCU list. Discussed possible other options. The patient does not want to go back hand to home. She would like the [facility] swing bed at this time. Discussed the patient's feelings of depression and down and frustration. Asked if she would like to speak with a counselor, and she states "no.". 3. Code status and advance directive. The patient want no CPR. Would like to be ventilated. Does have a copy of an advance directive. will try to bring in tomorrow. RECOMMENDATIONS: 1. Candidiasis, is currently on fluconazole, has been on for a few weeks. May consider adding saline rinses, may help clean her mouth a little better. May consider nystatin if no improvement after being on fluconazole for a while. 2. Anorexia. The patient is currently on Megace. Recently, dose was increased. Discussed possible alternatives. We will have Dietary stop by and talk with the patient on maybe some protein powder to add to food to help increase the patient's dietary protein levels. May consider some mirtazapine if Megace is not improving appetite. 3. Depression: Currently, is on Lexapro. The patient refused psychiatric consult at this time. We will continue to support the patient and her family. Total time was 60 minutes, with 50 minutes for counseling and coordination of care. TRACY ROY NP FOR MD RENALDO TRAN/modl /[id number] d: 06/25/16 1333 t: 07/03/16 0720, CONSULTATION REPORT
--- NOTE | ~2016-06-12 | CON ---
PATIENT'S NAME: JOAQUIN RE[facility]ER [facility] AGE: 61 Y [address] ROOM: [place] [address] LOCATION: GPCU ADMIT DATE: 06/12/2016 Consultation DISCHARGE DATE: 06/30/2016 FAMILY PHYSICIAN: Enoc Ba MD ATTENDING PHYSICIAN: Carlo Mckinnon DATE OF CONSULTATION: 06/13/2016 REFERRING PHYSICIAN: Reed Mcgrath MD REQUESTING PHYSICIAN: Pepe Muhammad M.D. REASON FOR CONSULTATION: Right pleural effusion. HISTORY OF PRESENT ILLNESS: The patient is a 61-year-old white female, who was admitted to [facility] following a transfer from [facility] for acute respiratory failure. The patient has been in a weakened state with increasing shortness of breath, cough, and weight loss. The patient has had a recent respiratory infectious process that did not resolve with antibiotic therapy. She went to the [facility] with these complaints and a CT scan revealed a right-sided loculated pleural effusion, likely parapneumonic. She was transferred here for higher level of care. The patient has been on steroid therapy, antibiotic therapy. She does currently complain of the thrush to the mouth. She has had such severe coughing that last month she broke several left-sided ribs from coughing. She was admitted by Hospitalist Services. She has been seen by Pulmonology. They do ask Dr. Raines to see the patient regarding remediation of the pleural fluid, possible decortication. PAST MEDICAL HISTORY: Illnesses: COPD, anemia, asthma, vitamin B12 deficiency, hypothyroidism, severe osteoporosis, tobacco abuse, diabetes mellitus type 2, GERD, degenerative joint disease, high-risk medications, steroids, scoliosis, dyslipidemia, vitamin D deficiency, and hyperparathyroidism. Surgeries/Procedures: Hysterectomy. ALLERGIES: PENICILLIN AND LEVOFLOXACIN. SOCIAL HISTORY: The patient is . She and her reside in [place], [place]. She has a daughter. She has been a longstanding smoker, having smoked for 50 years at least a pack a day. She quit smoking few weeks back. She does work PATIENT'S NAME: JOAQUIN RE[facility] AGE: 61 Y [address] ROOM: [place] [address] LOCATION: GPCU ADMIT DATE: 06/12/2016 Consultation DISCHARGE DATE: 06/30/2016 FAMILY PHYSICIAN: Enoc aB MD ATTENDING PHYSICIAN: Carlo Mckinnon as a teaching aide. She does not abuse alcohol. FAMILY HISTORY: Her father had history with Alzheimer's and did complications from the disease. Her mother is alive and well. MEDICATIONS: Please see medication administration record. REVIEW OF SYSTEMS: A 10-point review of systems was completed with negative findings other than those mentioned in HPI. PHYSICAL EXAMINATION: VITAL SIGNS: Blood pressure 137/84, pulse is 98, respirations 17, temperature 98.1, and O2 saturations 94% on 2 L. Height is 162.6 cm. Weight is 43 kg. GENERAL: The patient is pleasant. She does appear older than her stated age. She also appears nutritionally compromised. HEENT: Normocephalic with EOMIs intact. LUNGS: Clear to diminished throughout. CARDIOVASCULAR: Tachy, but regular. ABDOMEN: Soft, nontender by 4 quadrants with positive bowel sounds throughout. EXTREMITIES: No overt varicosities or edema. NEUROLOGIC: Alert and oriented. Symmetrical strength. LABORATORY AND TEST RESULTS: As per HPI. IMPRESSION AND PLAN: Loculated right pleural effusion, likely parapneumonic with empyema. Dr. Raines discussed VATS procedure versus an open thoracotomy with decortication. Risks and benefits of the procedure were discussed with the patient and her . Placement of chest tube was discussed. The patient does wish to proceed with surgical intervention. We would like to thank Pulmonary Services for allowing us to participate in the care of this very pleasant woman. QUAN GUSMAN APRN FOR MASOUD RAINES, DO DLQ/modl PATIENT'S NAME: JOAQUIN RE[facility] AGE: 61 Y [address] ROOM: [address] [place] [id number] LOCATION: GPCU ADMIT DATE: 06/12/2016 Consultation DISCHARGE DATE: 06/30/2016 FAMILY PHYSICIAN: Enoc Ba MD ATTENDING PHYSICIAN: Carlo Mckinnon /[id number] d: 07/15/160 t: 07/16/16 1531, CONSULTATION REPORT
[2016-06-12] MEDS ORDERED: HYDROMORPHONE HC4 MG PO (20:58)
[2016-06-12] MEDS ORDERED: GLUCOPHAGE500 MG PO (20:58)
[2016-06-12] MEDS ORDERED: LYRICA 150MG C150 MG PO (20:59)
[2016-06-12] MEDS ORDERED: PROTONIX40 MG PO (21:00)
[2016-06-12] MEDS ORDERED: DIFLUCAN100 MG PO (21:00)
[2016-06-12] MEDS ORDERED: LEVOTHROID (SY88 MCG PO (21:01)
[2016-06-12] MEDS ORDERED: DELTASONE5 MG PO (21:04)
[2016-06-12] MEDS ORDERED: LIPITOR40 MG PO (21:05)
[2016-06-12] MEDS ORDERED: XANAX0.25 MG PO (21:06)
[2016-06-12] MEDS ORDERED: ZITHROMAX250 MG PO (21:06)
[2016-06-12] MEDS ORDERED: MS CONTIN30 MG PO (21:06)
[2016-06-12] MEDS ORDERED: MUCUS ER1200 MG PO (21:08)
[2016-06-12] MEDS ORDERED: VITAMIN D1000 UNI1 PO (21:10)
[2016-06-12] MEDS ORDERED: IRON325 M1 PO (21:11)
[2016-06-12] MEDS ORDERED: ADVAIR 500-501 EACH INH (21:11)
[2016-06-12] MEDS ORDERED: TUMS ULTRA ST1177 MG (21:14)
[2016-06-12 23:28] LABS: HEMATOCRIT 36.9 % (33.0-46.0); HEMOGLOBIN 11.1 g/dL (10.0-15.0); MCH 24.3 pg (27.0-34.0); MCHC 30.1 gm/dL (32.0-36.5); MCV 80.9 fl (83.0-98.0); MPV 8.8 fl (9.4-12.4); PLATELET COUNT 690 K/uL (150-450); RBC 4.56 M/uL (3.50-5.50); RDW-CV 21.9 % (11.9-14.6)
[2016-06-12 23:32] LABS: WBC 25.6 K/uL (4.0-11.0)
[2016-06-12 23:50] LABS: ALK PHOS 159 IU/L (33-138); ALT 17 IU/L (12-78); AST 22 IU/L (10-40); BLOOD UREA NITROGEN 8 mg/dL (6-24); CALCIUM 8.3 mg/dL (8.5-10.5); CHLORIDE 97 mMol/L (96-110); CO2 28 mMol/L (22-32); CREATININE 0.3 mg/dL (0.5-1.1); ESTIMATED GFR (MDRD EQUATION) > 60; MAGNESIUM 1.9 mg/dL (1.3-2.6); PHOSPHORUS 2.7 mg/dL (2.5-4.9); SODIUM 138 mMol/L (135-145); TOTAL BILIRUBIN 0.3 mg/dL (0.0-1.5)
[2016-06-12 23:52] LABS: ALBUMIN 1.8 gm/dL (3.5-5.0)
[2016-06-12 23:59] LABS: BANDED NEUTROPHILS % 4 %; LYMPHOCYTE # 1.5 K/uL (0.8-4.0); LYMPHOCYTE % 6 %; SEGMENTED NEUTROPHIL % 86 %
--- NOTE | 2016-06-13 04:47 | NUR ---
Pt arrives to PCU by EMS from [facility]. Pt A/Ox3, states she is a little "foggy". Pt admitted d/t increasing shortness of breath and difficulty breathing over last couple days. Pt has a history of asthma and a recent pneumonia. Pt is A/Ox3. VSS upon arrival. C/O rib pain d/t a recent fall resulting in a fracture. Arrives to PCU on 2L/NC, lungs coarse throughout. Will be started on IV antibiotics and breathing treatments.
--- NOTE | 2016-06-13 06:37 | NUR ---
Significant events: Pt A/Ox3, forgetful at times. VSS. On 2L/NC. IV antibiotics started. Breathing treatments continue. Up SBA. MS contin for back/rib pain. PO dilaudid x1. Slept most of shift.
[2016-06-13] MEDS ORDERED: DELTASONE5 MG PO (11:07)
[2016-06-13] MEDS ORDERED: VITAMIN B-1000 MCG/M IM (11:09)
[2016-06-13] MEDS ORDERED: PROVENTIL OR V6.7 GM INH (11:10)
[2016-06-13] MEDS ORDERED: ALBUTEROL2.5 MG/31 INH (11:10)
[2016-06-13] MEDS ORDERED: VIACTIV SOFT C1 EACH PO (11:11)
[2016-06-13] MEDS ORDERED: ANTACID CHEWAB1 EACH PO (11:11)
[2016-06-13] MEDS ORDERED: FIBER THERAPY660 GM PO (11:12)
[2016-06-13] MEDS ORDERED: EFFEXOR XR75 MG PO (11:35)
--- NOTE | 2016-06-13 15:58 | NUR ---
Significant Event: A/O. VSS on 2L. Chronic pain tolerable with scheduled pain meds. Up with 1 assist and walker. Very dyspneic with activity. Encouraging nutrition. assists with cares. Follow up: thoracoscopy vs vats procedure wednesday
[2016-06-13 17:04] LABS: BASOPHIL # 0.1 K/uL (0.0-0.2); BASOPHIL % 0.3 %; HEMATOCRIT 33.8 % (33.0-46.0); HEMOGLOBIN 10.1 g/dL (10.0-15.0); IMMATURE GRANULOCYTE # 0.2 K/uL (0.0-0.3); IMMATURE GRANULOCYTE % 0.8 %; LYMPHOCYTE # 0.6 K/uL (0.8-4.0); LYMPHOCYTE % 2.4 %; MCH 24.6 pg (27.0-34.0); MCHC 29.9 gm/dL (32.0-36.5); MCV 82.4 fl (83.0-98.0); MONOCYTE # 0.9 K/uL (0.0-1.0); MONOCYTE % 3.8 %; MPV 8.7 fl (9.4-12.4); NEUTROPHIL # (ANC) 21.5 K/uL (1.8-7.8); NEUTROPHIL % 92.7 %; NRBC % 0 /100WBC (0-0.00); RDW-CV 22.1 % (11.9-14.6)
[2016-06-13 17:05] LABS: PLATELET COUNT 545 K/uL (150-450); WBC 23.2 K/uL (4.0-11.0)
[2016-06-13 17:29] LABS: ANION GAP 13.2 (10.0-19.0); BLOOD UREA NITROGEN 9 mg/dL (6-24); CHLORIDE 100 mMol/L (96-110); CO2 30 mMol/L (22-32); CREATININE 0.4 mg/dL (0.5-1.1); ESTIMATED GFR (MDRD EQUATION) > 60; POTASSIUM 3.2 mMol/L (3.7-5.1); SODIUM 140 mMol/L (135-145)
[2016-06-14 03:51] LABS: BASOPHIL % 0.2 %; HEMATOCRIT 33.4 % (33.0-46.0); HEMOGLOBIN 9.9 g/dL (10.0-15.0); IMMATURE GRANULOCYTE # 0.2 K/uL (0.0-0.3); IMMATURE GRANULOCYTE % 0.9 %; LYMPHOCYTE # 1.5 K/uL (0.8-4.0); LYMPHOCYTE % 7.1 %; MCH 24.3 pg (27.0-34.0); MCHC 29.6 gm/dL (32.0-36.5); MCV 81.9 fl (83.0-98.0); MONOCYTE % 4.5 %; MPV 9.3 fl (9.4-12.4); NEUTROPHIL # (ANC) 18.8 K/uL (1.8-7.8); NEUTROPHIL % 87.3 %; NRBC % 0 /100WBC (0-0.00); PLATELET COUNT 641 K/uL (150-450); RBC 4.08 M/uL (3.50-5.50); RDW-CV 21.8 % (11.9-14.6); WBC 21.6 K/uL (4.0-11.0)
[2016-06-14 04:05] LABS: ANION GAP 12.6 (10.0-19.0); BLOOD UREA NITROGEN 7 mg/dL (6-24); CHLORIDE 104 mMol/L (96-110); CO2 29 mMol/L (22-32); CREATININE 0.3 mg/dL (0.5-1.1); ESTIMATED GFR (MDRD EQUATION) > 60; POTASSIUM 3.6 mMol/L (3.7-5.1); SODIUM 142 mMol/L (135-145)
--- NOTE | 2016-06-14 05:26 | NUR ---
Significant Event: A/0X3. FORGETFUL. RESTED IN BED ALL OF SHIFT. TURNS SELF. AFEBRILE. VSS ON 2L. SCHEDULED MS CONTIN AND DILUADID PO GIVEN FOR CHRONIC PAIN. LAST DOSE OF DILUADID WAS AT 0032. PATIENT WAS ABLE TO FIND RELIEF AND NO C/O OF PAIN THE REST OF THE SHIFT. IV TO L) AC HAS VANCO RUNNING. CONTINUE WITH IV ANTIBITOICS. PATIENT WAS INCONTINENT OF URINE X2. NO BM THIS SHIFT. 2 DOSE OF 40 MEQ OF KCL GIVEN FOR K OF 3.2. Follow up: CONTINUE WITH PLAN OF CARE.
--- NOTE | 2016-06-14 17:08 | NUR ---
Significant Event: A/O. VSS on 2L/NC. Incontinent of urine x1. Pain controlled with prn dilaudid and scheduled ms contin. Up with 1 assist and walker. at bedside. Plan for [address] Ham. GI consult for abnormal abdominal CT. Need to get records from EGD that was done by Dr Ace from [facility] [place]. states she also had an abdominal CT done in [place] in March. New IV to R) hand. Follow up:
[2016-06-15 03:24] LABS: BASOPHIL % 0.2 %; HEMATOCRIT 34.9 % (33.0-46.0); HEMOGLOBIN 10.3 g/dL (10.0-15.0); IMMATURE GRANULOCYTE # 0.2 K/uL (0.0-0.3); LYMPHOCYTE # 1.5 K/uL (0.8-4.0); LYMPHOCYTE % 7.9 %; MCH 24.5 pg (27.0-34.0); MCHC 29.5 gm/dL (32.0-36.5); MCV 83.1 fl (83.0-98.0); MONOCYTE % 5.4 %; NEUTROPHIL # (ANC) 15.7 K/uL (1.8-7.8); NEUTROPHIL % 85.5 %; NRBC % 0 /100WBC (0-0.00); PLATELET COUNT 526 K/uL (150-450); RDW-CV 21.9 % (11.9-14.6)
[2016-06-15 03:25] LABS: WBC 18.3 K/uL (4.0-11.0)
[2016-06-15 03:45] LABS: BLOOD UREA NITROGEN 5 mg/dL (6-24); CALCIUM 8.2 mg/dL (8.5-10.5); CHLORIDE 107 mMol/L (96-110); CO2 29 mMol/L (22-32); CREATININE 0.2 mg/dL (0.5-1.1); ESTIMATED GFR (MDRD EQUATION) > 60; PHOSPHORUS 2.1 mg/dL (2.5-4.9); POTASSIUM 3.2 mMol/L (3.7-5.1)
[2016-06-15 03:48] LABS: PROTIME 10.4 SECONDS (9.6-11.1)
[2016-06-15 03:53] LABS: ALBUMIN 1.8 gm/dL (3.5-5.0); ANION GAP 14.2 (10.0-19.0); SODIUM 147 mMol/L (135-145)
--- NOTE | 2016-06-15 05:06 | NUR ---
Significant Event: A/0X3. FORGETFUL. RESTED IN CHAIR ALL OF SHIFT. 1 ASSIST TO BR. AFEBRILE. VSS ON 2L. SCHEDULED MS CONTIN PLUS DILUADID GIVEN FOR CHRONIC PAIN. PATIENT WAS ABLE TO FIND RELIEF AND REST COMFORTABLY. TYLENOL GIVEN AT 2150 FOR A HEADACHE. PATIENT WAS ABLE TO FIND RELIEF AND NO C/O OF PAIN SINCE. IV TO R) HAND HAS VANCO RUNNING. BEEN NPO SINCE MIDNIGHT FOR PROCEDURE THIS AM. PERMITS SIGNED AND ON THE CHART. INCONTINENT X1 AND VOIDED 800 ML. NO BM THIS SHIFT. Follow up: CONTINUE WITH PLAN OF CARE.
[2016-06-15 10:28] LABS: HEMATOCRIT 34.3 % (33.0-46.0); HEMOGLOBIN 10.3 g/dL (10.0-15.0)
--- NOTE | 2016-06-15 13:40 | NUR ---
CONSULT RECEIVED FOR SUPPLEMENTS. PT CURRENTLY RECEIVING ENSURE ENLIVE BID, MAGIC CUP @ L, YOGURT @ AM SNACK, COTTAGE CHEESE & PEARS AT PM SNACK. WILL CONTINUE TO FOLLOW.
--- NOTE | 2016-06-15 13:45 | NUR ---
1345 Introduced self/role to patients Jair as patient was sleeping. At this point can't think of any discharge needs. Ran thru the common areas in which we assist. Wrote my name on her marker board, will continue to follow.
--- NOTE | 2016-06-15 17:11 | NUR ---
Significant event: A&Ox3. HR 80-90's. SBP 110-150's. Afebrile. On RA. Has R) CT x 2, with total 190 ml sangious output, bubbling noted. Patient does have thrill to R) chest, under axillary. SENIOR OFFICE ASSISTANT dilaudid, 0.1 mg cont. 0.1 mg demand, lockout 8 min. Attempt 11, delivered 10. Pierson in, has had large UOP. Lung sounds continue to be coarse, encouraged coughing. GI seen patient, no orders. Woc saw patient, will get elbow protectors, iris cushion when up, turn Q2H. Back redness is resolved. Follow Up: Continue to monitor pain.
--- NOTE | 2016-06-16 05:44 | NUR ---
SIGNIFICANT EVENT: A/O X 3. ON RA VSS. CT TO RIGHT SIDE X 2 WITH CONTINUOUS BUBBLING. CREPITUS ON THE RIGHT UPPER CHEST NOTED 120ML OF SANGIOUS OUTPUT. POWER TOOL REPAIR TECHNICIAN DILAUDID 0.1 MG CONTINUOUS, 0.1MG DEMAND WITH 8 MIN LOCKOUT. 17 ATTMEPTS AND 15 DEMANDS. TURN FROM SIDE TO SIDE EVERY 2 HOURS. HYDE INTACT WITH 650 UOP.
[2016-06-16 06:57] LABS: HEMATOCRIT 30.8 % (33.0-46.0); HEMOGLOBIN 9.1 g/dL (10.0-15.0); MCH 24.4 pg (27.0-34.0); MCHC 29.5 gm/dL (32.0-36.5); MCV 82.6 fl (83.0-98.0); MPV 9.1 fl (9.4-12.4); PLATELET COUNT 550 K/uL (150-450); RBC 3.73 M/uL (3.50-5.50); RDW-CV 22.2 % (11.9-14.6)
[2016-06-16 07:12] LABS: CHLORIDE 101 mMol/L (96-110); CO2 25 mMol/L (22-32); POTASSIUM 3.7 mMol/L (3.7-5.1)
[2016-06-16 07:16] LABS: ALBUMIN 1.8 gm/dL (3.5-5.0); ANION GAP 13.7 (10.0-19.0); BLOOD UREA NITROGEN 9 mg/dL (6-24); CALCIUM 7.2 mg/dL (8.5-10.5); CREATININE 0.5 mg/dL (0.5-1.1); ESTIMATED GFR (MDRD EQUATION) > 60; PHOSPHORUS 1.9 mg/dL (2.5-4.9); SODIUM 136 mMol/L (135-145)
[2016-06-16 07:23] LABS: LYMPHOCYTE # 1.7 K/uL (0.8-4.0); LYMPHOCYTE % 8 %; MONOCYTE # 0.6 K/uL (0.0-1.0); SEGMENTED NEUTROPHIL # 16.2 K/uL (1.8-7.8); SEGMENTED NEUTROPHIL % 77 %
[2016-06-16 07:24] LABS: ABSOLUTE NEUTROPHIL CT (ANC) 18.7 K/uL (1.8-7.8); BANDED NEUTROPHIL # 2.5 K/uL (0.0-0.1); BANDED NEUTROPHILS % 12 %
--- NOTE | 2016-06-16 10:43 | NUR ---
A - NUTRITION CONSULT FOR TF: GLU 188, BUN/COMBAT SYSTEMS OPERATOR MINE WARFARE 9/0.5, ALB 1.8, PO4 1.9, WBC 21.0. DIET: DIABETIC MECH SOFT W/ SUPPLEMENTS, INTAKE 0-25%. EST NEEDS: 6326-3035 KCALS, 55-66 GM PROTEIN, 1 ML/KCAL FLUIDS. D - INADEQUATE ORAL INTAKE R/T DECREASED APPETITE AEB INTAKE RECORD. I - GOAL: PROVISION OF 100% NUTRITION VIA EN. M/E - PHONED PROVIDER AND OBTAINED ORDERS FOR GLUCERNA 1.2 TO RUN AT GOAL OF 50 ML/HR = 1440 KCALS, 72 GM PROTEIN, 966 ML FREE H20 AND FLUSHES 150 ML TID. F/U IN 2-4 DAYS.
--- NOTE | 2016-06-16 16:52 | NUR ---
A&Ox3. VSS on room air. Afebrile. R) Chest tube x 2 with 150ml out. Dilaudid MEAT COUNTER WORKER - ETCO2 stable. Patient has poor appetite. Dobhoff placed for nutrition. Attempts to place dobhoff on floor failed and it was then placed under fluoroscopy at 1420. Tube feeding initiated at 1530 at 20 ml/hr with a goal rate of 50ml/hr and 150ml q8h water flush. K Phos started and IV abx continued. PRN norco given for pain. Bed exercises with PT/OT. Repositioned q2h.
--- NOTE | 2016-06-16 18:41 | NUR ---
I HAVE REVIEWED THE CHARTING OF SN ANTONINA AND I AGREE WITH IT.
[2016-06-17 06:34] LABS: BASOPHIL % 0.2 %; HEMOGLOBIN 8.8 g/dL (10.0-15.0); IMMATURE GRANULOCYTE # 0.4 K/uL (0.0-0.3); IMMATURE GRANULOCYTE % 2.1 %; LYMPHOCYTE # 1.9 K/uL (0.8-4.0); LYMPHOCYTE % 9.7 %; MCH 24.9 pg (27.0-34.0); MCHC 30.3 gm/dL (32.0-36.5); MCV 82.2 fl (83.0-98.0); MONOCYTE # 1.4 K/uL (0.0-1.0); MONOCYTE % 6.9 %; MPV 9.1 fl (9.4-12.4); NEUTROPHIL # (ANC) 16.2 K/uL (1.8-7.8); NEUTROPHIL % 81.1 %; NRBC % 0 /100WBC (0-0.00); PLATELET COUNT 489 K/uL (150-450); RBC 3.53 M/uL (3.50-5.50); RDW-CV 21.9 % (11.9-14.6)
--- NOTE | 2016-06-17 06:48 | NUR ---
Significant Event: A/0X3. RESTED IN BED ALL OF SHIFT. TURNED Q 2 HRS SIDE TO SIDE. AFEBRILE. VSS ON RA. ETCO2 MONITOR IN PLACE. PAIN WAS CONTROLLED WITH MORPHINE TRACTOR TRAILER DRIVER AND NORCO X1. LAST DOSE WAS AT 2136. TRACTOR TRAILER DRIVER CONTINUOUS AT 0.1 WITH A 0.1 MG/H BOLUS AND A 8 MIN LOCK OUT. 83 ATTEMPTS WITH 62 DELIVERED. PATIENT WAS ABLE TO REST COMOFRTABLY. CT TO R) LATERAL SIDE. HAD 40 ML OF SANGUINEOUS DRAINAGE OUT.HOOKED TO SUCTION. STILL HAS THE CONTINUOUS BUBBLING. DRESSING C/D/I. HAD TO START A NEW IV TO R) UPPER ARM SL. IV TO L) FA HAS D5 W @ 20 ML/H AND THE TRACTOR TRAILER DRIVER RUNNING. HYDE PATENT WITH 850 UOP. NO BM THIS SHIFT. DOUBHOFF TO R) NOSTRIL INTACT. GLUCERNA AT 50 ML/H. 150 ML FLUSH Q 8 HRS. CONTINUE WITH IV ANTIBTIOICS. Follow up: CONTINUE WITH PLAN OF CARE.
[2016-06-17 06:53] LABS: ANION GAP 13.8 (10.0-19.0); BLOOD UREA NITROGEN 7 mg/dL (6-24); CALCIUM 7.7 mg/dL (8.5-10.5); CHLORIDE 107 mMol/L (96-110); CO2 24 mMol/L (22-32); CREATININE 0.3 mg/dL (0.5-1.1); ESTIMATED GFR (MDRD EQUATION) > 60; MAGNESIUM 1.4 mg/dL (1.3-2.6); POTASSIUM 3.8 mMol/L (3.7-5.1); SODIUM 141 mMol/L (135-145)
--- NOTE | 2016-06-17 17:23 | NUR ---
Significant Events: A&Ox3. VSS on RA. Afebrile. Lungs coarse throughout. Right chest tube x 2 with 90ml out. Dilaudid SUPERCHARGER REPAIR SUPERVISOR - ETCO2 stable. Up to chair with PT. Turn q2h. ID consulted and IV rocephin started. Other abx discontinued. Will switch to oral after chest tubes removed. Follow-up: PICC line placement. Encourage PO intake.
[2016-06-18 04:47] LABS: ANION GAP 14.3 (10.0-19.0); BLOOD UREA NITROGEN 9 mg/dL (6-24); CALCIUM 8.1 mg/dL (8.5-10.5); CHLORIDE 101 mMol/L (96-110); CO2 25 mMol/L (22-32); CREATININE 0.3 mg/dL (0.5-1.1); ESTIMATED GFR (MDRD EQUATION) > 60; MAGNESIUM 1.8 mg/dL (1.3-2.6); PHOSPHORUS 2.6 mg/dL (2.5-4.9); POTASSIUM 4.3 mMol/L (3.7-5.1); SODIUM 136 mMol/L (135-145)
--- NOTE | 2016-06-18 04:56 | NUR ---
Significant Event: A/0X3. FORGETFUL AT TIMES. RESTED IN BED ALL OF SHIFT. TURNED Q 2 HRS. AFEBRILE. VSS ON RA. ETCO2 MONITOR IN PLACE. ELECTRONICS PARTS SALES REPRESENTATIVE WTIH DILUADID PCU RUNNING AT 0.1 MG/H CONTINUOUS WITH A 0.1 MG BOLUS AND A 8 MIN LOCKOUT PERIOD. ATTEMPTED 115. DELIVERED 49. ALSO GAVE NORCO X2. LAST DOSE WAS AT 0409. PATIENT WAS ABLE TO FIND RELIEF AND REST COMFORTABLY THROUGHOUT THE SHIFT. CT TO R) LATERAL SIDE. HAD 30 SANGUINEOUS DRAINAGE. DRESSING D/I. HYDE PATENT WITH 2000 ML OUT. NO BM THI SHIFT. IV TO L) FA WITH DILUADID AND D5 W AT TKO. PICC TO UPPER R) ARM SL. FLUSHES WITH GOOD BLOOD RETURN. Follow up: CONTINUE WITH PLAN OF CARE.
[2016-06-18 04:58] LABS: BASOPHIL % 0.2 %; HEMATOCRIT 28.8 % (33.0-46.0); HEMOGLOBIN 8.8 g/dL (10.0-15.0); IMMATURE GRANULOCYTE # 0.5 K/uL (0.0-0.3); IMMATURE GRANULOCYTE % 2.1 %; LYMPHOCYTE # 2.3 K/uL (0.8-4.0); LYMPHOCYTE % 9.8 %; MCH 24.7 pg (27.0-34.0); MCHC 30.6 gm/dL (32.0-36.5); MCV 80.9 fl (83.0-98.0); MONOCYTE # 1.2 K/uL (0.0-1.0); MONOCYTE % 5.3 %; MPV 9.4 fl (9.4-12.4); NEUTROPHIL # (ANC) 19.1 K/uL (1.8-7.8); NEUTROPHIL % 82.6 %; NRBC % 0.1 /100WBC (0-0.00); PLATELET COUNT 531 K/uL (150-450); RBC 3.56 M/uL (3.50-5.50)
[2016-06-18 05:04] LABS: WBC 23.1 K/uL (4.0-11.0)
--- NOTE | 2016-06-18 19:10 | NUR ---
Significant Event: Patient A/O x 3. Up with 1-2A to chair. Has refused to attempt to walk in halls. States she will tomorrow. VSS on RA. ET CO2 monitoring WNL. Dilaudid NURSE FIRST ASSIST continues at 0.1mg/h with 0.1 mg demand and 8 minute lockout. Patient had 73 attempts and 43 deliveries. Educated on pushing NURSE FIRST ASSIST button and ensured that pain was being controlled. Also receiving [place] 2 tabs q4h, last at 1559. R)chest tube to suction. with no crepitus noted. Drsings C/D/I. 40 ml out. Continuous bubbling. MD aware. Glucerna tube feeding continue sat 50 ml/h with 150 ml H2O water flushes q8h. Duboff through right nare. Continues to have poor appetite. Started on Miralax today. ACHS accu checks. R)double lumen PICC line with Dilaudid and D5W carrier infusing. Good blood return. LFA PIV saline locked. Follow up: Continue as per plan of care. Notify pharmacy when CT pulled so they can change to PO antibiotics. Possibly consider restarting antidepressant.
--- NOTE | 2016-06-19 05:04 | NUR ---
Significant Event: Patient alert and oriented. Anxious at times. Dilaudid CERTIFIED HYPERBARIC TECHNOLOGIST continues with 34 demands and 32 delivered. [place] given x2 last at 0215. VSS on room air. Right chest tube with 30 ml out this shift. Pierson patent with good urine output. Dobhoff to right nare with glucerna at 50 ml per hour. No residules noted. Rested well throughout shift. Pleasant and cooperative with cares. Follow up: continue to monitor, encourage patient to ambulate
[2016-06-19 05:23] LABS: ANION GAP 14.4 (10.0-19.0); BLOOD UREA NITROGEN 13 mg/dL (6-24); CALCIUM 8.9 mg/dL (8.5-10.5); CHLORIDE 101 mMol/L (96-110); CO2 25 mMol/L (22-32); CREATININE 0.3 mg/dL (0.5-1.1); ESTIMATED GFR (MDRD EQUATION) > 60; MAGNESIUM 1.6 mg/dL (1.3-2.6); POTASSIUM 4.4 mMol/L (3.7-5.1); SODIUM 136 mMol/L (135-145)
[2016-06-19 05:43] LABS: HEMATOCRIT 30.2 % (33.0-46.0); HEMOGLOBIN 9.1 g/dL (10.0-15.0); MCH 24.5 pg (27.0-34.0); MCHC 30.1 gm/dL (32.0-36.5); MCV 81.2 fl (83.0-98.0); MPV 9.7 fl (9.4-12.4); PLATELET COUNT 633 K/uL (150-450); RBC 3.72 M/uL (3.50-5.50); RDW-CV 22.1 % (11.9-14.6)
[2016-06-19 05:45] LABS: WBC 26.5 K/uL (4.0-11.0)
[2016-06-19 06:10] LABS: ABSOLUTE NEUTROPHIL CT (ANC) 22.8 K/uL (1.8-7.8); BANDED NEUTROPHIL # 2.1 K/uL (0.0-0.1); BANDED NEUTROPHILS % 8 %; LYMPHOCYTE # 1.1 K/uL (0.8-4.0); LYMPHOCYTE % 4 %; MONOCYTE # 1.3 K/uL (0.0-1.0); SEGMENTED NEUTROPHIL # 20.7 K/uL (1.8-7.8); SEGMENTED NEUTROPHIL % 78 %
--- NOTE | 2016-06-19 10:49 | NUR ---
A - NUT F/U. PICC. FORGETFUL @ TIMES. BMI 16.6 LABS: ACCUCHECK REAS->200, GLU 180, BUN/CR 13/0.3, WBC 26.5 MEDS: ROCEPHIN, CEFTIN, MEGACE, SSI, LYRICA, PREDNISONE, SYNTHROID, FLORASTOR, PROTONIX, NAUSEA DIET: DIABETIC, MECH-SOFT. INTAKE: 0-25% ENSURE BID, MAGIC CUP @ L GLUCERNA 1.2 @ 50 ML/HR W/ 150 ML WATER TID VIA DOBHOFF. TOLERATING. PROVIDES 1440 KCAL, 72 G PRO, 966 ML FREE WATER. NEEDS: 0382-8761 KCAL, 55-66 G PRO D - INADEQUATE ORAL NUTRIENT INTAKE R/T DECREASED APPETITE AEB INTAKE RECORD, NEED FOR ENTERAL NUTRITION, BMI < 19. I - GOAL FOR CONITNUED ENTERAL NUTRITION TOLERANCE. WILL CONTINUE CURRENT INTERVENTIONS. M/E - WILL MONITOR INTAKE, TF F/U IN 4-5 DAYS.
--- NOTE | 2016-06-19 11:10 | NUR ---
1110 Followed up with patient and her Jair. Nursing thought maybe HHC would be good. agreed, at least to do it a little while. Patient was hesitant but agreed to at least look into and fax them information. Did tell them nursing thought there was a chance she could go home Wednesday at the earliest. They had no preference on HHC agency. Did inform them there would be a co-pay with their [employer]. 1150 Called [facility] and spoke to Kelsey, they do cover [place]. Faxed them info. F#[phone]. Asked Kelsey to please contact the with the financial piece once they looked those up, also wrote that on the fax cover sheet. 1205 Followed up with patient and . Gave them some material to read about HHC and [facility] along with their contact info. Placed a note on the chart to fax orders and meds to [facility] if discharged over the weekend.
--- NOTE | 2016-06-19 20:28 | NUR ---
Significant Event: Alert and oriented X 3. Can be a little forgetful. VSS. Room air. Up with 2 assist due to control of tubes. Chronic back pain due to fibromyalgia. Dual chest tube to right side. Continuous bubble, physicians are aware. Change to water seal at midnight. PICC to anterior upper arm, flushes well, 5% Dextrose infusing TKO. Dilaudid COMMERCIAL LEASING MANAGER pump with .1 continuous, .1 demand every 8 minutes. 33 demands this shift with 33 deliveries. Dolliver also given for breakthrough pain. Pierson catheter intact, draining yellow urine. Walked outside doorway with PT this shift. L/forearm peripheral IV, saline locked. Pleasant and cooperative with cares. Follow up:
[2016-06-20 04:33] LABS: ANION GAP 15.2 (10.0-19.0); BLOOD UREA NITROGEN 11 mg/dL (6-24); CALCIUM 8.3 mg/dL (8.5-10.5); CHLORIDE 101 mMol/L (96-110); CO2 25 mMol/L (22-32); CREATININE 0.4 mg/dL (0.5-1.1); ESTIMATED GFR (MDRD EQUATION) > 60; MAGNESIUM 1.9 mg/dL (1.3-2.6); POTASSIUM 4.2 mMol/L (3.7-5.1); SODIUM 137 mMol/L (135-145)
[2016-06-20 04:42] LABS: HEMATOCRIT 28.8 % (33.0-46.0); HEMOGLOBIN 8.7 g/dL (10.0-15.0); MCH 24.4 pg (27.0-34.0); MCHC 30.2 gm/dL (32.0-36.5); MCV 80.9 fl (83.0-98.0); MPV 9.3 fl (9.4-12.4); PLATELET COUNT 653 K/uL (150-450); RBC 3.56 M/uL (3.50-5.50)
--- NOTE | 2016-06-20 04:42 | NUR ---
SIGNIFICANT EVENT: VSS ON RA THROUGHOUT SHIFT. SHRIMP CLEANER CONTINUES AT 0.1MG CONT, 0.1MG DEMAND WITH 8 MINUTE LOCKOUT, 48 DEMANDS AND 48 DELIVERS TOTAL OF 5.88MG. NORCO GIVEN X2. NO ISSUES WITH ETCO2 OR RR. NO RESIDUALS. FOLLOW UP:
[2016-06-20 05:15] LABS: ABSOLUTE NEUTROPHIL CT (ANC) 25.2 K/uL (1.8-7.8); BANDED NEUTROPHIL # 1.2 K/uL (0.0-0.1); BANDED NEUTROPHILS % 4 %; LYMPHOCYTE # 2.9 K/uL (0.8-4.0); LYMPHOCYTE % 10 %; MONOCYTE # 0.9 K/uL (0.0-1.0); SEGMENTED NEUTROPHIL # 24.1 K/uL (1.8-7.8); SEGMENTED NEUTROPHIL % 83 %
--- NOTE | 2016-06-20 17:27 | NUR ---
Significant Event: Patient A/O x 3. Up with 1-2A. VSS on RA. Requests oxygen when ambulating. R)chest tube continues to waterseal with [address] Ham states it was not pulled today due to air leak. R)upper arm PICC with D5W infusing at 10 ml/hr and Dilaudid NETEZZA DEVELOPER at 0.1 mg/h and 0.1 mg demand with 8 minute lockout. 57 attempts and 49 delivers. Vanco and Rocephin continue IV. ACHS accu checks. Continue to encourage PO intake. TF continues at 50 ml/h with flushes q8h. Follow up: Continue as per plan of care.
[2016-06-21 03:46] LABS: BLOOD UREA NITROGEN 17 mg/dL (6-24); CHLORIDE 99 mMol/L (96-110); CO2 27 mMol/L (22-32); CREATININE 0.3 mg/dL (0.5-1.1); ESTIMATED GFR (MDRD EQUATION) > 60; MAGNESIUM 1.6 mg/dL (1.3-2.6); SODIUM 136 mMol/L (135-145)
[2016-06-21 03:55] LABS: HEMATOCRIT 26.6 % (33.0-46.0); HEMOGLOBIN 8.2 g/dL (10.0-15.0); MCHC 30.8 gm/dL (32.0-36.5); MCV 81.1 fl (83.0-98.0); MPV 9.4 fl (9.4-12.4); PLATELET COUNT 623 K/uL (150-450); RBC 3.28 M/uL (3.50-5.50); WBC 28.5 K/uL (4.0-11.0)
[2016-06-21 04:19] LABS: ABSOLUTE NEUTROPHIL CT (ANC) 26.5 K/uL (1.8-7.8); BANDED NEUTROPHIL # 1.7 K/uL (0.0-0.1); BANDED NEUTROPHILS % 6 %; LYMPHOCYTE # 1.4 K/uL (0.8-4.0); LYMPHOCYTE % 5 %; MONOCYTE # 0.3 K/uL (0.0-1.0); SEGMENTED NEUTROPHIL # 24.8 K/uL (1.8-7.8); SEGMENTED NEUTROPHIL % 87 %
--- NOTE | 2016-06-21 04:35 | NUR ---
Significant Event: A/0 X 3, HAS NOT BEEN FORGETFULL THIS EVENING. AMBULATES 1-2 ASSIST (JUST FOR CORDS). HR REMAINS TACHY UPPER 90'S TO 100'S. ALL OTHER VSS, PUT ON 1L 02 WHILE SLEEPING PER PATIENT REQUEST. TUBE FEEDING AT 50ML/HR WITH 150ML H20 FLUSH [id number]. ALSO DILUDID ALCOHOLISM WORKER 0.1 CONT, 0.1 DEMAND, HAD 16 ATTEMPTS 16 DELIVERED. CONTINUES WITH VANCO Q6 HOURS. CHEST TUBE TO WATER SEAL ONLY 10 ML OUTPUT. ONLY REQUEST PRN PAIN MEDS X 1, 2 NORCO GIVEN AT 2255. SHE HAS RATED HER PAIN WITHIN TOLERABLE LIMITS THE ENTIRE EVENING. HYDE 400 UOP. Follow up:
--- NOTE | 2016-06-21 16:51 | NUR ---
Significant Event: Patient slightly more confused and disoriented to time this afternoon. Up with 1-2 assist. (2 assist with cords/tubes). VSS on RA. HR's 90-100's. No chest tube output. Continues to have crepitus above more medial chest tube site right above right breast. MD aware. Chest xray in A.M. Dilaudid ASTRONOMY PROFESSOR continues with 34 attempts and 33 delivers. No norco given this shift. reports he feels like she has been more confused today. Was disoriented to time the 3rd assessment. States she makes confused statements. Otherwise neurologically intact. Dizziness with activity. R)PICC double lumen with Dilaudid infusing and D5W at TKO. All tubing and caps changed this shift. Doboff discontinued. ACHS accu checks. Follow up: Continue as per plan of care.
[2016-06-22 04:19] LABS: ANION GAP 12.5 (10.0-19.0); CALCIUM 7.9 mg/dL (8.5-10.5); CHLORIDE 104 mMol/L (96-110); CO2 25 mMol/L (22-32); CREATININE 0.2 mg/dL (0.5-1.1); ESTIMATED GFR (MDRD EQUATION) > 60; MAGNESIUM 1.6 mg/dL (1.3-2.6); POTASSIUM 3.5 mMol/L (3.7-5.1); SODIUM 138 mMol/L (135-145)
[2016-06-22 04:24] LABS: BLOOD UREA NITROGEN 8 mg/dL (6-24)
[2016-06-22 04:28] LABS: HEMATOCRIT 26.3 % (33.0-46.0); MCH 24.8 pg (27.0-34.0); MCHC 30.4 gm/dL (32.0-36.5); MCV 81.4 fl (83.0-98.0); MPV 9.5 fl (9.4-12.4); PLATELET COUNT 663 K/uL (150-450); RBC 3.23 M/uL (3.50-5.50); WBC 25.7 K/uL (4.0-11.0)
--- NOTE | 2016-06-22 04:51 | NUR ---
Significant Event: PATIENT A/0 X 3, BUT HAS PERIODS OF CONFUSION, REORIENTATION PROVIDED AND GENERALLY WORKS WELL. HR REMAINS TACHY 90' S TO LOW 100'S, AFEBRILE. 02 SATS HAVE REMAINED 94%-98% ALL EVENING ON RA. CHEST TUBE HAD NO OUTPUT. DILAUDID LABORATORY ENGINEER 9 DEMANDS 8 DELIVERED. NORCO GIVEN X 1 AT 0400. CONTINUES WITH IV VANCO, D5 TKO. HYDE 1600 UOP. Follow up:
[2016-06-22 05:00] LABS: ABSOLUTE NEUTROPHIL CT (ANC) 21.9 K/uL (1.8-7.8); BANDED NEUTROPHIL # 1.5 K/uL (0.0-0.1); BANDED NEUTROPHILS % 6 %; LYMPHOCYTE # 2.8 K/uL (0.8-4.0); LYMPHOCYTE % 11 %; MONOCYTE # 0.5 K/uL (0.0-1.0); SEGMENTED NEUTROPHIL # 20.3 K/uL (1.8-7.8); SEGMENTED NEUTROPHIL % 79 %
--- NOTE | 2016-06-22 12:45 | NUR ---
Reviewed chart and talked with nurse, she is concerned that pt may not be able to go home safely, may need swingbed stay prior to going home, recommends waiting until here to visit as pt emotional today. Will follow and assist with dc planning as we know more when will be ready for dc.
--- NOTE | 2016-06-22 17:04 | NUR ---
Significant Event: Patient A/O x 3. Forgetful and talks in her sleep. Jumpy at times. VSS on RA. Very tearful and emotional throughout the day. Overwhelmed with everything, especially about eating and activity (therapies). Started on zofran before meals. Chest tube pulled out. CXR in A.M. To pull garcia catheter at midnight. Dialudid E COMMERCE MARKETING MANAGER changed to 0.1 mg demand dose only with 20 minute lockout, which is infusing with D5W as carrier. To be shut off at at 0600. R)upper arm double lumen PICC (with E COMMERCE MARKETING MANAGER/D5W) and LFA PIV saline locked. ACHS accu checks. Follow up: Continue as per plan of care. Give additonal emotional support/encouragement. Xray in A.M. Possibly start PPN/lipids tomorrow if nutrition does not improve.
[2016-06-23 03:41] LABS: ANION GAP 13.7 (10.0-19.0); BLOOD UREA NITROGEN 4 mg/dL (6-24); CALCIUM 8.1 mg/dL (8.5-10.5); CHLORIDE 105 mMol/L (96-110); CO2 22 mMol/L (22-32); CREATININE 0.3 mg/dL (0.5-1.1); ESTIMATED GFR (MDRD EQUATION) > 60; MAGNESIUM 1.7 mg/dL (1.3-2.6); POTASSIUM 3.7 mMol/L (3.7-5.1); SODIUM 137 mMol/L (135-145)
[2016-06-23 04:09] LABS: BASOPHIL # 0.1 K/uL (0.0-0.2); BASOPHIL % 0.3 %; HEMOGLOBIN 8.2 g/dL (10.0-15.0); IMMATURE GRANULOCYTE # 0.3 K/uL (0.0-0.3); IMMATURE GRANULOCYTE % 1.2 %; LYMPHOCYTE # 2.2 K/uL (0.8-4.0); MCH 24.8 pg (27.0-34.0); MCHC 30.4 gm/dL (32.0-36.5); MCV 81.6 fl (83.0-98.0); MONOCYTE # 1.5 K/uL (0.0-1.0); MONOCYTE % 6.3 %; MPV 9.7 fl (9.4-12.4); NEUTROPHIL # (ANC) 20.1 K/uL (1.8-7.8); NEUTROPHIL % 83.2 %; NRBC % 0.1 /100WBC (0-0.00); PLATELET COUNT 742 K/uL (150-450); RBC 3.31 M/uL (3.50-5.50); RDW-CV 22.1 % (11.9-14.6); WBC 24.2 K/uL (4.0-11.0)
--- NOTE | 2016-06-23 05:48 | NUR ---
Patient A/Ox3 can be somewhat forgetful at times. VSS on RA. Lungs course/cough. [place] DC at 0000 several incont. voids since then. Bowel sounds present, abd slight distended. PICC to RT upper arm, good blood return. No motivation. CT site CDI, incision closed so S/S of infection. Dilaudid HEAD TURBINE OPERATOR 8demands 6deliveries. tylenolx1 for headache with relief. Only had bits for supper. HEAD TURBINE OPERATOR to be turned off at 0600.
--- NOTE | 2016-06-23 08:56 | NUR ---
CONSULT RECEIVED D/T PU. RD FOLLOWING PT AND NUTRITION INTERVENTIONS ARE IN PLACE.
--- NOTE | 2016-06-23 10:09 | NUR ---
Received consult to work on TCU placement. Put pt on TCU waiting list, they are full right now and do not anticipate a bed open this week. Will talk with pt and spouse and see where else they would like pt to go if needing skilled stay, perhaps closer to home to [facility]? Will see what they feel her needs are.
--- NOTE | 2016-06-23 14:02 | NUR ---
A-NURTITION CONSULT RECEIVED FOR NUTRITION REASSESSMENT PER TPN PROTOCOL. CHEST TUBE PULLED. (+)BS; ABD SLIGHTLY DISTENDED. DOBHOFF D/C. LABS: NA 137, K+ 3.7, GLU 123, BUN 4, GRUBBER 0.3 MEDS: NUCYNTA, LEXAPRO, MAXIPIME, MELATONIN, ZOFRAN, DELTASONE DIET RX: CONSISTENT CARB W/ENSURE ENLIVE BID AT B/D, MAGIC CUP AT L, YOGURT AT AM SNACK, AND COTTAGE CHEESE/FRUIT AT PM SNACK. PO INTAKE IS BITES-100%. 40 ML/HR PPN W/250 20% LIPIDS DAILY STARTED; THIS WILL PROVIDE 990 KCALS AND 41 GM PROTEIN. EST NUTR NEEDS: 3451-6808 KCALS AND 55-66 GM PROTEIN D-AT NUTRITION RISK W/INADEUQATE ORAL INTAKE R/T DECREASED APPETITE AEB INTAKE RECORD, RECENT TF, CURRENT PPN/LIPIDS, BMI <19.0 I-1)CONTINUE W/CURRENT ORAL NUTRITION SUPPLEMENTS 2)RECOMMEND INCREASING PPN TO 55 ML/HR W/250 ML 20% LIPIDS TO PROVIDE 1173 KCALS AND 56 GM PROTEIN, IN ORDER TO MEET MORE OF PT'S NUTRIENT NEEDS D/T SPORADIC PO INTAKE. M/E-GOAL: PO INTAKE 25-50% BY NEXT F/U 1)F/U PO INTAKE, PPN/LIPIDS, LABS, AND POC IN 2-3 DAYS 2)ASSIST NEEDED
--- NOTE | 2016-06-23 16:15 | NUR ---
PATIENT ALERT AND ORIENTED. VSS ON ROOM AIR. 1304 TOTAL INTAKE; VD X 6 TOTAL OUTPUT. PT IN PAIN, RECIEVED NORCO Q4H THIS SHIFT. NUCYNTA STARTED THIS AM FOR PAIN. TPN AND LIPIDS STARTED THIS SHIFT. BLOOD SUGARS IN UPPER 100'S, RECIEVED 2 UNITS INSULIN AT LUNCH AND SUPPER TIME.
--- NOTE | 2016-06-23 17:21 | NUR ---
I HAVE REVIEWED THE CHARTING OF SN ORI AND I AGREE WITH IT.
[2016-06-24 04:14] LABS: ANION GAP 13.6 (10.0-19.0); CALCIUM 7.9 mg/dL (8.5-10.5); CHLORIDE 107 mMol/L (96-110); CO2 21 mMol/L (22-32); CREATININE 0.3 mg/dL (0.5-1.1); ESTIMATED GFR (MDRD EQUATION) > 60; MAGNESIUM 1.8 mg/dL (1.3-2.6); POTASSIUM 3.6 mMol/L (3.7-5.1); SODIUM 138 mMol/L (135-145)
[2016-06-24 04:18] LABS: BLOOD UREA NITROGEN 7 mg/dL (6-24)
--- NOTE | 2016-06-24 04:30 | NUR ---
Significant Event: Patient A/Ox3. VSS on RA. Patient did have two very large incontinent voids this evening. Stated that incontinence is not normal for her. PPn at 40ml/hr, lipids at 20ml/hr. Cath kate to red lumen of PICC, now has good blood return. Patient was sounding very coarse this morning, PRN RT did help. Follow Up: Vanco trough at 0930 before 1000 dose. May need to cathflo other lumen of PICC.
[2016-06-24 05:09] LABS: HEMATOCRIT 27.8 % (33.0-46.0); HEMOGLOBIN 8.4 g/dL (10.0-15.0); MCH 25.1 pg (27.0-34.0); MCHC 30.2 gm/dL (32.0-36.5); MPV 9.7 fl (9.4-12.4); PLATELET COUNT 836 K/uL (150-450); RBC 3.35 M/uL (3.50-5.50); RDW-CV 22.5 % (11.9-14.6)
[2016-06-24 05:11] LABS: PROTIME 10.3 SECONDS (9.6-11.1)
[2016-06-24 05:15] LABS: WBC 25.4 K/uL (4.0-11.0)
[2016-06-24 05:41] LABS: ABSOLUTE NEUTROPHIL CT (ANC) 23.4 K/uL (1.8-7.8); BANDED NEUTROPHIL # 1.3 K/uL (0.0-0.1); BANDED NEUTROPHILS % 5 %; LYMPHOCYTE # 0.8 K/uL (0.8-4.0); LYMPHOCYTE % 3 %; MONOCYTE # 1.3 K/uL (0.0-1.0); SEGMENTED NEUTROPHIL # 22.1 K/uL (1.8-7.8); SEGMENTED NEUTROPHIL % 87 %
--- NOTE | 2016-06-24 15:19 | NUR ---
Significant Events: Patient alert and oriented. Emotional today with a poor appetite. Vanco and Cefepime DC'd. Merrem initiated. Sa02 upper 90's on RA. Abdominal CT today for leukocytosis and poor appetite. Showed constipation and going to give suppository. Plan for abdominal ultra sound in AM for distended gallbladder. PICC line in right arm, double lumen with TPN infusing at 40 ml/hr and lipids at 20 ml/hr. Last given [place] at 1420. Palliative care consult today. Left forearm IV saline locked. Increased megace today. Oral rinses to start QID. Follow up: Continue as per plan of care. Continue encouraging nutrition and abdominal ultra sound in AM. Extra emotional support.
[2016-06-25 03:41] LABS: ANION GAP 13.8 (10.0-19.0); BLOOD UREA NITROGEN 7 mg/dL (6-24); CALCIUM 8.2 mg/dL (8.5-10.5); CHLORIDE 106 mMol/L (96-110); CO2 20 mMol/L (22-32); CREATININE 0.3 mg/dL (0.5-1.1); ESTIMATED GFR (MDRD EQUATION) > 60; POTASSIUM 3.8 mMol/L (3.7-5.1); SODIUM 136 mMol/L (135-145)
[2016-06-25 03:45] LABS: BASOPHIL # 0.1 K/uL (0.0-0.2); BASOPHIL % 0.2 %; HEMATOCRIT 27.4 % (33.0-46.0); HEMOGLOBIN 8.3 g/dL (10.0-15.0); IMMATURE GRANULOCYTE # 0.3 K/uL (0.0-0.3); IMMATURE GRANULOCYTE % 1.2 %; LYMPHOCYTE # 1.9 K/uL (0.8-4.0); LYMPHOCYTE % 7.7 %; MCH 24.9 pg (27.0-34.0); MCHC 30.3 gm/dL (32.0-36.5); MCV 82.3 fl (83.0-98.0); MONOCYTE # 1.5 K/uL (0.0-1.0); MONOCYTE % 5.9 %; MPV 9.3 fl (9.4-12.4); NEUTROPHIL # (ANC) 20.9 K/uL (1.8-7.8); NRBC % 0 /100WBC (0-0.00); PLATELET COUNT 835 K/uL (150-450); RBC 3.33 M/uL (3.50-5.50); RDW-CV 22.2 % (11.9-14.6)
[2016-06-25 03:46] LABS: WBC 24.6 K/uL (4.0-11.0)
--- NOTE | 2016-06-25 04:46 | NUR ---
Significant Event: Patient A/Ox3. VSS on RA. SBP 132-147. HR 92-102. Patient is up 1-assist to bedside commode. Takes pills with apple sauce. Mouth rinse solution completed last night before bed. PICC dressing and caps changed this morning. Lipids at 20, PPN at 40. No complaints of pain this shift. Follow up: Abdominal ultrasound this morning.
--- NOTE | 2016-06-25 14:23 | NUR ---
A - NUT F/U. ABD U/S D/T DISTENDED GALLBLADDER. APPETITE POOR. 1+ EDEMA. DISLIKES ENSURE. ANOREXIA - PT REFUSING MEGACE TODAY. SEVERE PCM PER MD. ORAL THRUSH. O/A L) SACRUM. LABS: ACCUCHECK WNL->200, GLU 156, BUN/CR 7/0.3, WBC 24.6, HGB/HCT 8.3/27.4 MEDS: METFORMIN, MEGACE, MERREM, LEXAPRO, BOWEL/NAUSEA, PREDNISONE, SSI, SYNTHROID, FLORASTOR, PROTONIX. DIET: DIABETIC. INTAKE: REF-50%. MAGIC CUP @ L, ENSURE TID PPN @ 40 ML/HR W/ 250 ML 20% LIPIDS DAILY - PROVIDES 990 KCAL AND 41 G PRO (72% MIN KCAL AND 75% MIN PRO NEEDS) NEEDS: 6165-2593 KCAL, 55-66 G PRO D - INADEQUATE ORAL NUTRIENT INTAKE R/T DECREASED APPETITE AEB INTAKE RECORD, NEED FOR NUTRITION SUPPORT. I - GOAL FOR INCREASED NUTRIENT INTAKE. REC INCREASING PPN TO 70 ML/HR W/ 250 ML 20% LIPIDS DAILY TO PROVIDE 1356 KCAL AND 71 G PRO WILL DC ENSURE TID PER PT REQUEST. M/E - WILL MONITOR POC, INTAKE, PN. F/U IN 2-4 DAYS.
--- NOTE | 2016-06-25 18:52 | NUR ---
Significant Event: A/Ox3. [id number]. P-90-110s. Afebrile. Room air with saturations in low to mid 90s. Tahcypnic at times. L) wrist IV saline locked. R) UA PICC infusing TPN at 40ml/hr and Lipids at 20ml/hr. [place] 1 tab given x2 last dose around 1415 for pain around old chest tube site. patient ambulated in halls with PT x1 and ambulated to bathroom with staff with 1A/walker. Mod BM this shift. 1200ml plus one large inc urination/shift. Appetite still poor. Patient did however eat a late lunch. Pleasant and cooperative with cares.
--- NOTE | 2016-06-26 04:16 | NUR ---
Significant Event: Patient A/Ox3. VSS on RA. HR 97-105. SBP 123-145. [place] given x1 for pain at 1845. NO significant changes. Follow Up: Continue plan of care. Encourage patient to eat.
[2016-06-26 04:34] LABS: BLOOD UREA NITROGEN 13 mg/dL (6-24); CALCIUM 8.5 mg/dL (8.5-10.5); CHLORIDE 106 mMol/L (96-110); CO2 21 mMol/L (22-32); CREATININE 0.4 mg/dL (0.5-1.1); ESTIMATED GFR (MDRD EQUATION) > 60; MAGNESIUM 1.9 mg/dL (1.3-2.6); SODIUM 138 mMol/L (135-145)
[2016-06-26 04:38] LABS: HEMATOCRIT 28.6 % (33.0-46.0); HEMOGLOBIN 8.8 g/dL (10.0-15.0); MCH 25.4 pg (27.0-34.0); MCHC 30.8 gm/dL (32.0-36.5); MCV 82.4 fl (83.0-98.0); PLATELET COUNT 850 K/uL (150-450); RBC 3.47 M/uL (3.50-5.50); RDW-CV 22.1 % (11.9-14.6)
[2016-06-26 04:39] LABS: WBC 24.4 K/uL (4.0-11.0)
[2016-06-26 06:05] LABS: ABSOLUTE NEUTROPHIL CT (ANC) 20.5 K/uL (1.8-7.8); LYMPHOCYTE # 1.7 K/uL (0.8-4.0); LYMPHOCYTE % 7 %; MONOCYTE # 1.2 K/uL (0.0-1.0); SEGMENTED NEUTROPHIL # 20.5 K/uL (1.8-7.8); SEGMENTED NEUTROPHIL % 84 %
--- NOTE | 2016-06-26 18:55 | NUR ---
Significant Event: A/Ox3. [id number]. P-100-110s. Afebrile. Room air. Tachypnic. R)UA PICC infusing TPN 40ml/hr and Lipids 20ml/hr. Chest tube sites x2 and thoracotomy incision has edges approximated. Open to air. Patient recived 1 tab of norcox4. PRN lidocane patch put on at 1616 with last dose of norco given. PAtient up with SBA-1A. Patient ambulated x2 today and had a shower. Incotinent of urine at times. Small BM x1 and 2vds out this shift. Dr. Bey consulted for possible lukemia and increased platlets/high WBC. Plan is for patient to possibly discharge to TCU next week sometime.
[2016-06-27 05:18] LABS: HEMATOCRIT 26.6 % (33.0-46.0); HEMOGLOBIN 8.1 g/dL (10.0-15.0); MCH 24.9 pg (27.0-34.0); MCHC 30.5 gm/dL (32.0-36.5); MCV 81.8 fl (83.0-98.0); MPV 8.6 fl (9.4-12.4); PLATELET COUNT 680 K/uL (150-450); RBC 3.25 M/uL (3.50-5.50); RDW-CV 21.6 % (11.9-14.6)
[2016-06-27 05:21] LABS: WBC 23.3 K/uL (4.0-11.0)
--- NOTE | 2016-06-27 05:22 | NUR ---
Significant Event: PATIENT IS A/O X3 BUT FORGETFUL AT TIMES. VSS. HR 90-100'S. SBP 120-130'S. AFEBRILE. 02 SATS IN MID 90'S ON RA. C/O PAIN TO RIGHT SIDE. NORCO GIVEN WITH SOME RELIEF. LUNGS COARSE THROUHGOUT. UP WITH SBA TO ONE ASSIST TO. VERY SOB WITH ACTIVITY. USING BEDPAN AT NIGHT. INCONTIENT OF URINE AT TIMES. BRIEF ON. NO BM. STILL NEED CDIFF SAMPLE AND HEMATEST X3. APPETITE IMPROVING. ELBOW PROTECTORS TO BILAT ELBOWS. BOTTOM RED BUT BLANCHABLE. LEFT WRIST IV SL. RIGHT UPPER ARM PICC WITH TPN AT 40ML/HR AND LIPIDS AT 20M/HR. ON INTERMITTENT IV ABX. Follow up: CONTINUE TO MONITOR PER PLAN OF CARE. AM LABS WITH FOR DR LARSON.
[2016-06-27 05:42] LABS: ANION GAP 13.8 (10.0-19.0); BLOOD UREA NITROGEN 13 mg/dL (6-24); CALCIUM 8.2 mg/dL (8.5-10.5); CHLORIDE 106 mMol/L (96-110); CO2 20 mMol/L (22-32); CREATININE 0.4 mg/dL (0.5-1.1); ESTIMATED GFR (MDRD EQUATION) > 60; POTASSIUM 3.8 mMol/L (3.7-5.1); SODIUM 136 mMol/L (135-145)
[2016-06-27 06:24] LABS: ABSOLUTE NEUTROPHIL CT (ANC) 21.2 K/uL (1.8-7.8); BANDED NEUTROPHIL # 0.9 K/uL (0.0-0.1); BANDED NEUTROPHILS % 4 %; LYMPHOCYTE # 0.7 K/uL (0.8-4.0); LYMPHOCYTE % 3 %; MONOCYTE # 1.2 K/uL (0.0-1.0); SEGMENTED NEUTROPHIL # 20.3 K/uL (1.8-7.8); SEGMENTED NEUTROPHIL % 87 %
--- NOTE | 2016-06-27 11:21 | NUR ---
A - NUT F/U. CONSULT RECEIVED TO RE-ASSESS PPN RATE. PT CONTINUES TO NEED ENC TO EAT. AVG INTAKE FROM 06/24 TO 06/26 WAS 36%. PT IS EATING WELL AT SOME MEALS BUT REFUSING OTHER MEALS. ENSURE WAS DC'D PER PT REQUEST. WT: 93# BMI: 16.0 LABS: ACCUCHECK WNL->200, GLU 105, BUN/CR 13/0.4, WBC 23.3, HGB/HCT 8.1/26.6 MEDS: MEGACE, METFORMIN, BOWEL/NAUSEA, MERREM, LEXAPRO, PREDNISONE, SSI, SYNTHROID, PROTONIX DIET: DIABETIC. INTAKE: REF-75%, AVG ~36% MAGIC CUP @ L, COTTAGE CHEESE & FRUIT @ PM PPN @ 40 ML/HR W/ 250 ML 20% LIPIDS DAILY PROVIDING 990 KCAL, 41 G PRO. NEEDS: 5964-9158 KCAL, 55-66 G PRO D - INADEQUATE ORAL NUTRIENT INTAKE R/T DECREASED APPETITE, ALTERED GI FUNCTION AEB INTAKE RECORD, SEVERE GASTROENTERITIS. I - GOAL FOR INTAKE 50-75%. WILL ADD MAGIC CUP @ D. REC CONTINUING PPN/LIPIDS UNTIL PT CONSISTENTLY EATING AT LEAST 50-75% OF MEALS. M/E - WILL MONITOR INTAKE, PPN. F/U IN 3-4 DAYS.
--- NOTE | 2016-06-27 16:32 | NUR ---
Significant Event: ORIENTED X3. FORGETFULL AT TIMES. HASN'T FELT WELL TODAY. SLEPT ON/OFF. SCHEDULED NUCYNTA GIVEN X2 AND MORPHINE 1 MG IV X1 FOR C/O RIGHT CHEST PAIN. UP WITH 1 ASSIST, GB AND WALKER. INCONTINENT OF STOOL X2. RIGHT UPPER FA PICC WITH TPN INFUSING. LEFT FA SL. Follow up: CONTINUE TO MONITOR. POSSIBLY TO TCU NEXT WEEK SOMETIME.
--- NOTE | 2016-06-28 02:27 | NUR ---
Chest percussion ordered yesterday, patient c/o of too much pain with it. Refused CPT all this shift and does not want it. Patient is using FV and doing fine with that.
[2016-06-28 04:11] LABS: HEMATOCRIT 27.7 % (33.0-46.0); HEMOGLOBIN 8.4 g/dL (10.0-15.0); MCH 25.1 pg (27.0-34.0); MCHC 30.3 gm/dL (32.0-36.5); MCV 82.7 fl (83.0-98.0); MPV 8.6 fl (9.4-12.4); RBC 3.35 M/uL (3.50-5.50); RDW-CV 21.3 % (11.9-14.6)
[2016-06-28 04:12] LABS: WBC 28.7 K/uL (4.0-11.0)
--- NOTE | 2016-06-28 04:17 | NUR ---
Significant Event: PATIENT IS A/O X3. VSS. HR 100-110'S. SBP 130'S. AFEBRILE. 02 SATS IN LOW TO MID 90'S ON RA. C/O PAIN TO LEFT SIDE WHERE OLD CHEST TUBE WAS. 2 TABS NORCO GIVEN X2 WITH RELIEF. LUNGS CONTINUE TO BE COARSE/CRACKLES THROUGHOUT. VERY SOB AFTER ACTIVITY. USING BEDPAN AT NIGHT PER PATIENT REQUEST. VOIDS Q2H. UP WITH 1A WITH WALKER/GB. BOWELS ACTIVE. REDNESS TO BOTTOM. ALOE APPLIED AND PATIENT TURNED Q2H. ELBOW PROTECTORS TO BILATERAL ELBOWS INTACT. REDNESS TO ELBOWS IMPROVED. IV TO LEFT WRIST SL. PICC TO RIGHT UPPER ARM WITH TPN AT 40ML/HR AND LIPIDS AT 20ML/HR. ON INTERMITTENT IV ABX. ON ACHS ACCUCHECKS. Follow up: CONTINUE TO MONITOR PER PLAN OF CARE.
--- NOTE | 2016-06-28 16:20 | NUR ---
Significant Event: A/O X3. UP WITH 1 ASSIST, GB AND WALKER. C/O PAIN TO RIGHT POSTERIOR CHEST. MORPHINE 1 MG GIVEN X2. NORCO 2 TABS X2. AND SCHEDULED NUCYNTA GIVEN X2. LABORED BREATHING AND C/O DYSPNEA WITH ANY ACTIVITY, DOCTORS AWARE. ATE 50% OF BREAKFAST AND LUNCH TODAY. TPN CONTINUES TO INFUSING TO RIGHT UPPER FA DUAL LUMEN PICC. ZOFRAN GIVEN X1 THIS AM. PT REFUSED COLACE AND MIRALAX. Follow up: NEED HEMATEST X2.
[2016-06-28 20:56] LABS: ANION GAP 16.1 (10.0-19.0); BLOOD UREA NITROGEN 10 mg/dL (6-24); CALCIUM 8.7 mg/dL (8.5-10.5); CHLORIDE 105 mMol/L (96-110); CO2 19 mMol/L (22-32); CREATININE 0.4 mg/dL (0.5-1.1); ESTIMATED GFR (MDRD EQUATION) > 60; MAGNESIUM 1.8 mg/dL (1.3-2.6); PHOSPHORUS 2.7 mg/dL (2.5-4.9); POTASSIUM 4.1 mMol/L (3.7-5.1); SODIUM 136 mMol/L (135-145)
[2016-06-29 03:52] LABS: HEMATOCRIT 25.8 % (33.0-46.0); MCV 82.4 fl (83.0-98.0); MPV 8.7 fl (9.4-12.4); RBC 3.13 M/uL (3.50-5.50); RDW-CV 21.2 % (11.9-14.6)
[2016-06-29 04:06] LABS: HEMOGLOBIN 7.9 g/dL (10.0-15.0); MCH 25.2 pg (27.0-34.0); MCHC 30.6 gm/dL (32.0-36.5); WBC 19.4 K/uL (4.0-11.0)
[2016-06-29 04:17] LABS: ANION GAP 14.7 (10.0-19.0); BLOOD UREA NITROGEN 15 mg/dL (6-24); CALCIUM 8.4 mg/dL (8.5-10.5); CHLORIDE 108 mMol/L (96-110); CO2 19 mMol/L (22-32); CREATININE 0.3 mg/dL (0.5-1.1); ESTIMATED GFR (MDRD EQUATION) > 60; POTASSIUM 3.7 mMol/L (3.7-5.1); SODIUM 138 mMol/L (135-145)
[2016-06-29 04:29] LABS: MAGNESIUM 1.7 mg/dL (1.3-2.6); PHOSPHORUS 2.8 mg/dL (2.5-4.9)
--- NOTE | 2016-06-29 04:52 | NUR ---
Significant Event: PATIENT IS A/O X3 BUT FORGETFUL AT TIMES. VSS. HR 90-100'S. SBP 130-140'S. AFEBRILE. 02 SATS IN LOW TO MID 90'S ON RA. C/O PAIN TO RIGHT SIDE WHERE OLD CT WAS. 2 TAB NORCO GIVEN X2 WITH SOME RELIEF. PATIENT LUNGS VERY COURSE WITH CRACKLES THROUGHOUT. GETS VERY SOB WITH ANY ACTIVITY. UP WITH SBA TO 1A WITH WALKER/GB. BOWELS ACTIVE. INCONTINENT OF VOID AT TIMES. BRIEF ON. ELBOW PROTECTORS ON BILATERAL ARM. BOTTOM AND BACK REDNESS. ALOE APPLIED. PATIENT REFUSED TO GO TO BED TO SLEEP. PICC TO RIGHT UPPER ARM WITH TPN AT 40 ML/HR AND LIPIDS AT 20 ML/HR. ON ACHS ACCUCHECKS. AM CXR. Follow up: CONTINUE TO MONITOR PER PLAN OF CARE. POSSBILE TCU TRANSFER THIS WEEK.
[2016-06-29 07:23] LABS: BASOPHIL # 0.1 K/uL (0.0-0.2); BASOPHIL % 0.4 %; HEMATOCRIT 28.3 % (33.0-46.0); HEMOGLOBIN 8.3 g/dL (10.0-15.0); IMMATURE GRANULOCYTE # 0.1 K/uL (0.0-0.3); IMMATURE GRANULOCYTE % 0.6 %; LYMPHOCYTE # 1.5 K/uL (0.8-4.0); LYMPHOCYTE % 7.5 %; MCH 24.6 pg (27.0-34.0); MCHC 29.3 gm/dL (32.0-36.5); MONOCYTE % 4.9 %; NEUTROPHIL # (ANC) 17.3 K/uL (1.8-7.8); NEUTROPHIL % 86.6 %; NRBC % 0 /100WBC (0-0.00); PLATELET COUNT 281 K/uL (150-450); RBC 3.37 M/uL (3.50-5.50)
[2016-06-29 07:42] LABS: ALBUMIN 2.2 gm/dL (3.5-5.0); ALK PHOS 109 IU/L (33-138); ALT 39 IU/L (12-78); BLOOD UREA NITROGEN 13 mg/dL (6-24); CALCIUM 8.7 mg/dL (8.5-10.5); CHLORIDE 106 mMol/L (96-110); CO2 22 mMol/L (22-32); CREATININE 0.4 mg/dL (0.5-1.1); ESTIMATED GFR (MDRD EQUATION) > 60; SODIUM 138 mMol/L (135-145); TOTAL BILIRUBIN 0.3 mg/dL (0.0-1.5); TOTAL PROTEIN 7.2 g/dL (6.0-8.4)
[2016-06-29 07:44] LABS: ANION GAP 14.6 (10.0-19.0); AST 40 IU/L (10-40); POTASSIUM 4.6 mMol/L (3.7-5.1)
--- NOTE | 2016-06-29 13:06 | NUR ---
0930 Call to Fabiola on TCU to see when they would be able to accept Heidi. She states she will look over things and get back to me. 1015 Call from Fabiola that they can accept Heidi today if medically cleared by doctors to do so and also if insurance approves her to come. 1020 Phoned [facility] [employer] [facility], started precert for skilled stay. Faxed in information to Petra at [phone], ref. case #[id number]. [address] Mckinnon and RN Carmen that TCU could accept today if insurance approves and if MD thinks she is ready to go. Introduced self and CM role to Heidi. Updated her to trying to get her to TCU today, she was in agreement with this plan. 1132 Call from Petra with [employer] [facility], opt 9, stating that they were going to approve her for 8 days, update due on 07/06. She states if anything should change to call her and update her. 1140, let Dr. Mckinnon know that insurance had approved, he was going to look at her and determine that she could go. [address] Mckinnon, states that she is more SOB today, so to try to set up transfer for tomorrow to TCU. 1205 Send [employer] message with insurance information to Mallory Ambrose on TCU, let her know that Heidi would most likely come tomorrow, but I wanted to give her the information now since I had to with me. 1311 Phoned Petra to let her know that Heidi wasn't going to go today due to being SOB, she states that is fine, wants to be notified of when she goes and then she will send out a letter to TCU with all of her insurance update needs etc. Updated both Fabiola and Heidi to the plan to try for TCU tomorrow at 1300 if cleared to go at that time. Will continue to follow and assist.
--- NOTE | 2016-06-29 16:01 | NUR ---
Significant Event: NO A LOT OF CHANGES TODAY, PT UP IN CHAIR MOST OF THIS SHIFT. BACK TO BED LATE. LASIX GIVEN WITH GOOD RESULTS. VERY SOB WITH JUST TAKING PILLS AND CONVERSATIONAL SPEECH. AUDIBLE UPPER AIRWAY BREATHING SOUNDS HEARD IN ROOM, BUT LUNGS COARSE THROUGHOUT THIS AM, CLEARER BUT DIMINISHED THIS AFTERNOON. CAN HEAR GOOD AIR EXCHANGE THOUGHOUT MOST OF ALL LUNG ENGLISH. Follow up: MONITOR.
[2016-06-30 04:15] LABS: PROTIME 10.3 SECONDS (9.6-11.1)
--- NOTE | 2016-06-30 05:21 | NUR ---
Significant Event: PATIENT A/0 X 3, TURNS SELF OFTEN IN BED. HAS BEEN COOPERATIVE AND PLEASANT THIS EVENING. HR TACHY AT TIMES IN LOW 100'S, OTHERWISE IN THE 90'S, ALL OTHER VSS ON RA. LUNGS REMAINS VERY COARSE. TPN CONTINUES AT 40 ML/HR AND LIPIDS AT 20 ML/HR. SHE HAS RESTED WELL THIS EVENING. 2 NORCO GIVEN X 2 LAST AT 0410. Follow up: VERY PROBABLE SHE TRANSFER TO TCU AT 1300 TODAY.
--- NOTE | 2016-06-30 10:23 | NUR ---
A - NUTRITION F/U. LABS: GLU 164, BUN/GROCERY CARRIER 13/0.4, ALB 2.2, WBC 20.0. PT W/ 1+ BLE EDEMA. DIET: DIABETIC W/ MAGIC CUP AT L/D. INTAKE TYPICALLY 50-75%. PPN AT 40 ML/HR W/ 250 ML 20% LIPIDS DAILY (990 KCALS, 41 GM PROTEIN). TCU SOON. D - AT RISK W/ HX OF INADEQUATE ORAL INTAKE R/T DECREASED APPETITE AEB NEED FOR PN. I - GOAL: CONT 50-75% OR BETTER INTAKE. M/E - REC DISCONTINUING PPN/IL D/T BETTER ORAL INTAKE.
--- NOTE | 2016-06-30 11:53 | NUR ---
[address] Mckinnon to see when he was going to come round on Heidi as she was set up to go to TCU today at 1300. He states he is down in ICU and will be up as soon as he can be to evaluate her to make sure she can go to TCU today. I let him know that there wasn't anything that I could see that would be a reason to have her stay on acute another day. I talked with KIMBERLI Samuel earlier and she states that she did her insurance review yesterday and got that day approved, but Heidi is due for another update today and since there has been little change, she isn't positive that today will be approved for continued stay. Dr. Mckinnon states he will be around as soon as he can to see her. Will continue to follow and assist.
--- NOTE | 2016-06-30 13:24 | NUR ---
Patient is A&Ox3. VSS. Lung sounds coarse, weak cough, encouraging good pulmonary hygiene. Has been up with PT, to bathroom and doorway, does get short of air, but O2 saturations remain >90%. 1+ tibial edema. Bowel sounds active, has had 4 BM's, held colace and miralax. L) PICC SL'd. Elbow protectors in place. Bottom and mid back slightly red, blanchable. Heels floated. No pain, does occasionally have rib pain, treated with norco, last given at 0400.
== END 2016-06-30 14:20 | DRG 853 ==
LOC: GPCU 20:22
PROVIDERS: Anesthesiology; Family Medicine; Hospitalist; Internal Medicine; Internal Medicine Hematology & Oncology; Nurse Practitioner; Thoracic Surgery (Cardiothoracic Vascular Surgery); ADMIT Internal Medicine
PROC: 0BDN4ZZ Extraction of Right Pleura, Percutaneous Endoscopic Approach (ICD-10-PCS; principal; 2016-06-15)
PROC: 0W9940Z Drainage of Right Pleural Cavity with Drainage Device, Percutaneous Endoscopic Approach (ICD-10-PCS; principal; 2016-06-15)
PROC: 3E0L3GC Introduction of Other Therapeutic Substance into Pleural Cavity, Percutaneous Approach (ICD-10-PCS; principal; 2016-06-15)
PROC: 0DH57UZ Insertion of Feeding Device into Esophagus, Via Natural or Artificial Opening (ICD-10-PCS; 2016-06-16)
PROC: 02HV33Z Insertion of Infusion Device into Superior Vena Cava, Percutaneous Approach (ICD-10-PCS; 2016-06-17)
PROC: 3E0336Z Introduction of Nutritional Substance into Peripheral Vein, Percutaneous Approach (ICD-10-PCS; 2016-06-23)
DX: A41.59 Other Gram-negative sepsis (principal); J96.01 Acute respiratory failure with hypoxia; J86.9 Pyothorax without fistula; E43 Unspecified severe protein-calorie malnutrition; J15.8 Pneumonia due to other specified bacteria; J91.8 Pleural effusion in other conditions classified elsewhere; B37.0 Candidal stomatitis; E87.0 Hyperosmolality and hypernatremia; Z68.1 Body mass index [BMI] 19.9 or less, adult; Q67.5 Congenital deformity of spine; J98.11 Atelectasis; J95.812 Postprocedural air leak; J44.1 Chronic obstructive pulmonary disease with (acute) exacerbation; R65.20 Severe sepsis without septic shock; Z51.5 Encounter for palliative care; Z66 Do not resuscitate; K31.9 Disease of stomach and duodenum, unspecified; J44.9 Chronic obstructive pulmonary disease, unspecified; G89.29 Other chronic pain; M54.9 Dorsalgia, unspecified; K59.00 Constipation, unspecified; K44.9 Diaphragmatic hernia without obstruction or gangrene; B95.4 Other streptococcus as the cause of diseases classified elsewhere; Z79.52 Long term (current) use of systemic steroids; M81.0 Age-related osteoporosis without current pathological fracture; J45.909 Unspecified asthma, uncomplicated; E03.9 Hypothyroidism, unspecified; E78.5 Hyperlipidemia, unspecified; E11.9 Type 2 diabetes mellitus without complications; M19.90 Unspecified osteoarthritis, unspecified site; E21.3 Hyperparathyroidism, unspecified; E55.9 Vitamin D deficiency, unspecified; Z87.891 Personal history of nicotine dependence; Z79.891 Long term (current) use of opiate analgesic; Z79.84 Long term (current) use of oral hypoglycemic drugs; K21.9 Gastro-esophageal reflux disease without esophagitis; K20.9 Esophagitis, unspecified; Z88.0 Allergy status to penicillin; F32.9 Major depressive disorder, single episode, unspecified; D72.829 Elevated white blood cell count, unspecified; D47.3 Essential (hemorrhagic) thrombocythemia; I25.10 Atherosclerotic heart disease of native coronary artery without angina pectoris; D51.3 Other dietary vitamin B12 deficiency anemia; D50.9 Iron deficiency anemia, unspecified; Y83.8 Other surgical procedures as the cause of abnormal reaction of the patient, or of later complication, without mention of misadventure at the time of the procedure; K52.9 Noninfective gastroenteritis and colitis, unspecified
CPT/HCPCS: C1751; J0692; J0696; J1100; J1170; J1644; J1650; J1940; J2001; J2185; J2270; J2405; J2997; J3010; J3370; J3475; J3480; J7030; J7040; J7050; J7060; J7512; J7612; Q9967

== ENCOUNTER 2016-06-30 14:36 | Inpatient (IN) | payer BC ==
[~2016-06-30] VITALS: Ht 162.6 cm; Wt 39.5 kg
--- NOTE | ~2016-06-30 | DS ---
PATIENT'S NAME: JOAQUIN RE[facility] AGE: 61 Y [address] [place]OM: [facility] [address] [place], [place] [address] LOCATION: [facility] ADMIT DATE: 06/30/2016 Discharge Summary DISCHARGE DATE: 07/17/2016 FAMILY PHYSICIAN: Enoc Ba MD ATTENDING PHYSICIAN: Mathieu Hayes V DIAGNOSES FOR THIS HOSPITALIZATION: 1. Recovering on the transitional care unit after a complicated hospital stay. 2. Status post empyema. 3. Acute on chronic respiratory failure. 4. Steroid-dependent chronic obstructive pulmonary disease. 5. Type 2 diabetes. 6. Chronic pain due to multiple fractures. SUMMARY OF HOSPITALIZATION: This is a 61-year-old female who was transferred to the transitional care unit after a complicated hospital stay. The patient has advanced COPD with steroid dependency. She has scoliosis and multiple fractures. She had an uneventful stay on the transitional care unit where she worked with Physical Therapy and Occupational Therapy to improve her strength and mobility. She was also maintained on antibiotics for a recent empyema. We also tried to gently taper off her steroid regimen. Eventually, she was deemed safe to go home with physical therapy and was discharged. MD CHERIE BEATTY/dalia /[id number] d: 08/07/16 0142 t: 08/16/16 0354, DISCHARGE SUMMARY
--- NOTE | ~2016-06-30 | DS ---
PATIENT'S NAME: JOAQUIN REEDER [facility] AGE: 61 Y [address] ROOM: [id number] [place], [place] [address] LOCATION: GPCU ADMIT DATE: 06/12/2016 Discharge Summary DISCHARGE DATE: FAMILY PHYSICIAN: Enoc Ba MD ATTENDING PHYSICIAN: Mathieu Hayes V This is a discharge summary form date of admission up until June 24, 2016. The remaining part of the discharge summary from there onwards till discharge will be done by the discharging hospitalist. PRIMARY DIAGNOSES: Include: 1. Sepsis from one alpha hemolytic strep in the pleural fluid as well as from Achromobacter bacteremia. 2. Right loculated pleural effusion. 3. Anorexia. 4. Acute hypoxic respiratory failure. 5. Severe protein-calorie malnutrition. 6. Gastric mass. 7. Severe kyphosis with spine fracture. 8. Chronic obstructive pulmonary disease. 9. Chronic back pain. 10. Constipation. PRINCIPAL PROCEDURES DONE FOR THE PATIENT: Includes PICC line placement as well as right thoracoscopy with decortication by Dr. Ham. LABORATORY DATA: On admission, lactic acid was 1.3. On admission, WBC was 25.6, highest level obtained was 29.0, the last on June 24 was 25.4, H and H on admission was 11.9/36.9, on June 24, it was 8.4/27.8. Platelet count on admission was 690, on June 24, it was 836. Sodium on admission was 136, was stable, it was 138 on June 24. Creatinine on admission was 0.3, remained stable up until June 24 it was 0.3. Bicarb on admission was 28, on June 24 was 21. BUN was stable at 8. Magnesium was stable, on admission was 1.1, was stable at 1.8 on June 24. Albumin was 1.8. Hemoglobin A1c was 6.5. INR was 1.0. Prealbumin was 6. TSH was 1.47. Procalcitonin on admission was 0.22, the repeat was 0.21. MICROBIOLOGY: Blood culture x2 sets, no growth after 5 days. Right lung culture heavy growth for Streptococcus anginosus. Right lung no acid-fast observed. Fungal elements were also negative. Fungal culture was no growth. Repeat blood culture, no growth one set, and the other set was positive for Achromobacter xylosoxidans. Urine culture, no growth after 2 days. RADIOLOGY: Chest x-ray on admission was heart and mediastinum are normal with some aortic tortuosity, clear left lung, large right pleural effusion PATIENT'S NAME: JOAQUIN REEDER [facility] AGE: 61 Y [address] [place]: [facility] [place] [address] LOCATION: GPCU ADMIT DATE: 06/12/2016 Discharge Summary DISCHARGE DATE: FAMILY PHYSICIAN: Enoc Ba MD ATTENDING PHYSICIAN: Mathieu Hayes V including a loculated component lying in the major fissure measuring about 6-[address] abdomen and pelvis large loculated pleural effusion on the right with infrahilar streaky parenchymal changes, atelectasis versus inflammation versus possible neoplastic involvement. Abnormal stomach shows a very markedly thick wall and a large hiatus hernia that appears to have a central mass seen best on slice #15 cannot exclude gastric carcinoma, constipation. Multiple repeated chest x-rays and KUB following Dobbhoff placement tip of catheter lies in the distal esophagus and last CT of the abdomen with contrast improved pleural parenchymal abnormality at the right chest base with decreased loculated fluid and improvement of the streaky parenchymal opacity. Distended gallbladder is a change from prior study. No particular evidence for inflammation, worsening constipation, no new mass or fluid collection in the abdomen or pelvis. HOSPITAL COURSE: For history of present illness, please take a look at the H and P, which was done by Dr. Hayes. The patient was admitted to Progressive Care Unit was managed for complex right loculated pleural effusion. The patient was started on broad-spectrum antibiotics on the first day of stay started on vancomycin, cefepime, and Levaquin and also did get a Pulmonary consult with Dr. Muhammad and also a Cardiothoracic Surgery consult with Dr. Ham. After the patient was reviewed by Dr. Ham, a right thoracoscopy and decortication was scheduled, and the patient was also seen by Dr. Muhammad and agreed with the antibiotics and continue with prednisone and to wean off oxygen. Two days after admission, the patient had the right thoracoscopy done and decortication, which was well-tolerated by the patient without any intraoperative or postop complication. Following the procedure, the patient was put on a HYDROELECTRIC STATION OPERATOR pump, which she continued on for about a week, after which it was discontinued. Given the patient's poor p.o. intake, she had a Dobbhoff placed for tube feeding and also had a wharf hand consult. Given the anorexia, she was started on Megace with a little improvement in her appetite while she was on Dobbhoff feeding. Ultimately, the right pleural fluid culture came back positive for Streptococcus anginosus; and at this point, the patient's vancomycin was discontinued as well as Levaquin and Zosyn and the patient was started on Rocephin and also did get an ID consult. After the patient was evaluated by Infectious Disease doctor, they increased the dose of Rocephin to 2 g daily for 24 hours to be continued for as long as the patient is to have the chest tube in place and plan was that once the chest tube was removed for the patient to be continued on cefuroxime p.o. for 7 more days. However, following the modification in the antibiotics, it was observed that the patient's white cell count started to trend upward for the next 48 hours; and following this, we did get a repeat blood culture even though the patient had no fevers and we decided to restart the patient back on vancomycin; so at this point, the patient was on vancomycin and Rocephin. Following the addition of the vancomycin, there was some trending down in the white cell count; however, 48 hours after the blood culture was obtained, it became PATIENT'S NAME: JOAQUIN REEDER [facility] AGE: 61 Y [address] ROOM: [place] [address] [facility] AD[facility] DATE: 06/12/2016 Discharge Summary DISCHARGE DATE: FAMILY PHYSICIAN: Enoc Ba MD ATTENDING PHYSICIAN: Mathieu Hayes V positive for gram-negative rods and the patient subsequently had the Rocephin discontinued and was put on cefepime until the sensitivity was obtained, which showed Achromobacter, which was sensitive to Zosyn; however, the patient was allergic to penicillin so this was switched to meropenem and awaiting ID evaluation. Following what appeared to be an improvement in the patient's eating while she was on tube feeding, tube feeding was discontinued. However, thereafter, the patient appetite again dipped and so plan was to start the patient on TPN, which was started on June 23. Regarding the complex right loculated pleural effusion, this was managed by Dr. Ham, the patient had her chest tube in place for approximately 8 days after which it was discontinued following resolution of the effusion; and also at the same time too, she had her HYDROELECTRIC STATION OPERATOR pump discontinued. However, her anorexia persisted and so the Megace was titrated upwards to 400 b.i.d. On June 24, 2016, clinically, the patient looked more comfortable and was saturating on room air; however, appetite was still pretty poor. Given the elevation in her white cell count, which appeared to be stable at around 24 or 25,000, we did get a repeat CT abdomen and pelvis with IV contrast, which essentially was unchanged except for worsening of constipation and gallbladder distention. Also, of note is that the initial CT abdomen and pelvis, which was done during the time of admission showed some gastric mass for which GI was called and after they reviewed the patient's old chart which included prior colonoscopy done with biopsy as well as EGD, they recommended that plan for right now is just to monitor the patient and the patient will get a repeat EGD 3-6 months after discharge. The remaining part of the discharge summary will be completed by the discharging doctor. MD SUSAN TAMAYO/dalia /[id number] d: 06/25/16 0344 t: 07/24/16 0636, DISCHARGE SUMMARY
--- NOTE | ~2016-06-30 | DS ---
PATIENT'S NAME: JOAQUIN REEDER [facility] AGE: 61 Y [address] ROOM: [address] [place], [place] [address] LOCATION: GPCU ADMIT DATE: 06/12/2016 Discharge Summary DISCHARGE DATE: 06/30/2016 FAMILY PHYSICIAN: Enoc Ba MD ATTENDING PHYSICIAN: Mathieu Hayes V ADDENDUM: PRINCIPAL DIAGNOSES: 1. Gram-negative bacteremia. 2. Acute hypoxic respiratory failure secondary to bacterial pneumonia. 3. Bacterial pneumonia. 4. Achromobacter bacteremia. 5. Gastric mass. BRIEF HOSPITAL COURSE: This is a 61-year-old female who came in with respiratory failure and sepsis picture and known to have pleural effusion and pneumonia, and her right lung status post chest tube placement and drainage. Cultures of the pleural fluid growing Streptococcus. The patient also grew Achromobacter in her blood stream as well. The patient had been getting multiple broad-spectrum antibiotics and is currently on meropenem which the Achromobacter bacteremia is sensitive to. The patient is going to continue to get these antibiotics through a PICC line upon transfer to TCU. Infectious Disease to follow during her stay at TCU as well. For details of her hospital stay, please refer to Dr. Branham's discharge summary that was done a few days ago. During my evaluation today, the patient is lying in the chair, awake, alert, and oriented, although somewhat lethargic and deconditioned. Denies any chest pain or shortness of breath. DISPOSITION: Discharged to TCU. Greater than 30 minutes spent on discharge planning and facilitating. MD TRINA FERGUSON/dalia /[id number] d: 07/01/16 1130 t: 07/24/16 0634, DISCHARGE SUMMARY
[~2016-06-30 14:36] MED LIST: ADVAIR 500-501 EACH INH; ALBUTEROL2.5 MG/31 INH; ANTACID CHEWAB1 EACH PO; DELTASONE5 MG PO; DIFLUCAN100 MG PO; EFFEXOR XR75 MG PO; FIBER THERAPY660 GM PO; GLUCOPHAGE500 MG PO; HYDROMORPHONE HC4 MG PO; IRON325 M1 PO; LEVOTHROID (SY88 MCG PO; LIPITOR40 MG PO; LYRICA 150MG C150 MG PO; MS CONTIN30 MG PO; MUCUS ER1200 MG PO; PROTONIX40 MG PO; PROVENTIL OR V6.7 GM INH; TUMS ULTRA ST1177 MG; VIACTIV SOFT C1 EACH PO; VITAMIN B-1000 MCG/M IM; VITAMIN D1000 UNI1 PO; XANAX0.25 MG PO; ZITHROMAX250 MG PO
--- NOTE | 2016-06-30 15:27 | NUR ---
D: Nursing Admission Summary from PCU to TCU I: Nursing interventions provided to support the patient's individual plan of care R: MOBILITY-- 1a walker/gb. weak shuffling gait NUTRITION-- regular diet, needs encouragement with intake and supplements SKIN/INCISIONS/WOUNDS-- red elbows, wears elbow pads SELF CARES-- set up and encouragement BOWEL/BLADDER-- dribbling, last bm today on acute RESPIRATORY-- sob need to allow rest periods, course lung sounds, sats stable on room air PAIN-- nucynta and norco PSYCHOSOCIAL-- at bedside and involved in cares COGNITION-- alert oriented SPECIAL NEEDS-- BLEEDING-- heparin bid SENSORY IMPAIRMENTS/DENTAL NEEDS: TEACHING NEEDS-- INFECTION CONCERNS: tx for sepsis, old chest tube site, picc RISK FOR ELOPEMENT: none NEED FOR BED/MOVEMENT ALARM: hs DISMISSAL PLANS: home with Other: P: Current plan of care reviewed and updated
--- NOTE | 2016-07-01 04:10 | NUR ---
Significant Event: A/Ox3. Ambulates 1A with walker and gait belt. IV antibiotics through R)PICC. Takes scheduled Nucynta for pain. VSS. Takes medications in applesauce. Follow up:
[2016-07-01 05:44] LABS: BASOPHIL # 0.1 K/uL (0.0-0.2); BASOPHIL % 0.5 %; HEMATOCRIT 23.2 % (33.0-46.0); IMMATURE GRANULOCYTE # 0.1 K/uL (0.0-0.3); IMMATURE GRANULOCYTE % 0.6 %; LYMPHOCYTE # 1.8 K/uL (0.8-4.0); MCH 24.7 pg (27.0-34.0); MCHC 30.2 gm/dL (32.0-36.5); MONOCYTE # 1.8 K/uL (0.0-1.0); MONOCYTE % 8.2 %; MPV 9.7 fl (9.4-12.4); NEUTROPHIL # (ANC) 18.2 K/uL (1.8-7.8); NEUTROPHIL % 82.7 %; NRBC % 0 /100WBC (0-0.00); PLATELET COUNT 254 K/uL (150-450); RBC 2.83 M/uL (3.50-5.50); RDW-CV 20.2 % (11.9-14.6)
[2016-07-01 13:14] LABS: ADENOVIRUS F 40/41 Not Detected (Not Detect); ASTROVIRUS Not Detected (Not Detect); C DIFFICILE TOXIN A/B Not Detected (Not Detect); CAMPYLOBACTER SPECIES Not Detected (Not Detect); CRYPTOSPORIDIUM Not Detected (Not Detect); CYCLOSPORA CAYETANENSIS Not Detected (Not Detect); E. COLI (EPEC) Not Detected (Not Detect); E. COLI (ETEC) Not Detected (Not Detect); E. COLI (STEC) Not Detected (Not Detect); E. COLI 0157 Not Detected (Not Detect); ENTAMOEBA HISTOLYTICA Not Detected (Not Detect); GIARDIA LAMBLIA Not Detected (Not Detect); NOROVIRUS GI/ GII Not Detected (Not Detect); PLESIOMONAS SPECIES Not Detected (Not Detect); ROTAVIRUS A Not Detected (Not Detect); SALMONELLA SPECIES Not Detected (Not Detect); SAPOVIRUS Not Detected (Not Detect); SHIGELLA AND EIEC Not Detected (Not Detect); VIBRIO CHOLERAE Not Detected (Not Detect); VIBRIO SPECIES Not Detected (Not Detect); YERSINIA ENTEROCOLITICA Not Detected (Not Detect)
--- NOTE | 2016-07-01 14:22 | NUR ---
Significant Event: Alert/oriented. VSS. 1a walker/gb. Loose stools throughout shift, incontinent at times. Nausea relieved for short span of time by medications this am. Takes scheduled pain medication this am for lower back pain. Right PICC double lumen flushing with good blood return, antibiotics q6. Continues in contact iso while displaying symptoms of norovirus. Follow up:
--- NOTE | 2016-07-02 03:27 | NUR ---
Significant Event: Patient alert and oriented x3. Repositioned every 2hrs. Gets up with one assist. Continues with every 6hr breathing treatments and 1liter oxygen applied for shortness of breath. Tachypneic with labored breathing at times. Lungs slightly coarse. Tachycardic in low 100s. Left forearm IV saline locked running intermittent antibiotics. Zofran given at beginning of shift for nausea with no complaints since. No bowel movements or emesis this shift. Scheduled nycunta for pain and one tab norco given with relief. Cooperative with cares Follow up: monitor for skin breakdown, accuchecks ACHS, monitor respiratory status
[2016-07-02 06:05] LABS: BASOPHIL # 0.1 K/uL (0.0-0.2); BASOPHIL % 0.3 %; IMMATURE GRANULOCYTE # 0.1 K/uL (0.0-0.3); IMMATURE GRANULOCYTE % 0.6 %; LYMPHOCYTE # 1.2 K/uL (0.8-4.0); LYMPHOCYTE % 5.1 %; MCHC 29.7 gm/dL (32.0-36.5); MCV 81.9 fl (83.0-98.0); MONOCYTE # 1.7 K/uL (0.0-1.0); MONOCYTE % 7.3 %; MPV 10.1 fl (9.4-12.4); NEUTROPHIL # (ANC) 20.4 K/uL (1.8-7.8); NEUTROPHIL % 86.7 %; NRBC % 0 /100WBC (0-0.00); PLATELET COUNT 242 K/uL (150-450)
[2016-07-02 06:07] LABS: HEMATOCRIT 30.3 % (33.0-46.0); MCH 24.3 pg (27.0-34.0); WBC 23.5 K/uL (4.0-11.0)
--- NOTE | 2016-07-02 10:27 | NUR ---
TCU-Social Assessment & History Marital status: Spouse name: MIREYA Children/Grandchildren: ADOPTED DAUGHTER NATTY LIVES IN [place] Advanced Directive: PATIENT IS A DNR Admitted from: ACUTE CARE Admission date to TCU: 06-30-16 Reason for admission: CONTINUED OT/PT/RT, DAILY LABWORK, IV ANTIBIOTICS Q 6 HR, HEPARIN SQ, MODERATE SLIDING SCALE INSULIN POST DX OF R) PLEURAL EFFUSION, SEPSIS, ANOREXIA, ACUTE HYPOXIC RESPIRATORY FAILURE. HX OF COPD, STEROID DEPENDENCY, OSTEOPOROSIS, VITAMIN B 12 DEFICIENCY, LONGSTANDING LEUKOCYTOSIS AND THROMBOCYTOSIS. Patient/family received resident rights upon admission: YES IN ADMISSION PACKET ON TCU Prior level of functioning: INDEPENDENT HOWEVER WOULD RUN OUT OF AIR. Prior living situation: LIVES WITH HER WHO IS SUPERTINDENT OF SCHOOLS AT [employer] Financial resources: [email or web address] ([employer]). MARIPOSA IS LIZET AT PHONE # [phone] #9 FAX#[phone] REF CASE # [id number] Resources used/available: PALLIATIVE CARE IS FOLLOWING. MAY BENEFIT FROM HHC AND DME UPON D/C FROM TCU. HAS A WALK IN SHOWER AND SHOWER CHAIR AT HOME. 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 Behavior/Emotional needs: PLEASANT COOPERATIVE Legal concerns: N/A Spiritual: [facility] Discharge goal: PATIENT DESIRES TO RETURN HOME UPON D/C. Activities: Patient will be encouraged to participate in "ala carte" activities offered during her short stay on TCU. A current calendar of events is posted at bedside.
--- NOTE | 2016-07-02 19:10 | NUR ---
Significant Event: Follow up:Patient started out the morning with accucheck 46, called Dr Enciso with order to give dex 50% which brought accucheck up to 210, stopped Levimir insulin at HS. Patient passing loose stools today , started immodium today with good results. Eats poorly breakfast and lunch, here this afternoon and emcouraging patient to eat a good supper. Up to chair this afternoon and slept several hours. loose cough with green phlegm this am. o2 on at 1 liter, lungs clear. taking scheduled nucyenta for back pain. IV to left wrist for antibiotics.
--- NOTE | 2016-07-03 00:28 | NUR ---
A/O x 3. Pleasant. Cooperative. DNR. Accucheck AC/HS. Palliative consulted. Diarrhea today. Immodium given tonight. LFA HL. 1-assist transfer. Regular diet. Medicated for pain at HS for pain. Refusing to take Megace. Resting well.
[2016-07-03 06:22] LABS: BASOPHIL # 0.1 K/uL (0.0-0.2); BASOPHIL % 0.2 %; IMMATURE GRANULOCYTE # 0.2 K/uL (0.0-0.3); IMMATURE GRANULOCYTE % 0.7 %; LYMPHOCYTE # 1.7 K/uL (0.8-4.0); LYMPHOCYTE % 8.7 %; MCH 24.5 pg (27.0-34.0); MCHC 30.4 gm/dL (32.0-36.5); MCV 80.7 fl (83.0-98.0); MONOCYTE # 1.6 K/uL (0.0-1.0); MONOCYTE % 7.9 %; NEUTROPHIL # (ANC) 16.5 K/uL (1.8-7.8); NEUTROPHIL % 82.5 %; NRBC % 0 /100WBC (0-0.00); PLATELET COUNT 195 K/uL (150-450); RBC 3.22 M/uL (3.50-5.50); RDW-CV 19.7 % (11.9-14.6)
[2016-07-03 06:26] LABS: HEMOGLOBIN 7.9 g/dL (10.0-15.0)
--- NOTE | 2016-07-03 11:52 | NUR ---
Significant Event: HAD STUDENT NURSE UNTIL 1300. AMBULATES WITH 1 SBA USING GAIT BELT AND WALKER. CONTINUES ON AC/HS ACCUCHECKS NIGHT TIME LEVIMER DISCONTINUED. TAKEN OUT OF ISOLATION TODAY. AT BEDSIDE THIS MORNING. PLEASANT AND COOPERATIVE WITH CARES. Follow up:
--- NOTE | 2016-07-03 12:44 | NUR ---
PATIENT WAS CARED FOR BY A [facility] NURSE FROM [phone] AND SUPERVISED BY Ijeoma CADE RN FROM [facility]
--- NOTE | 2016-07-04 04:48 | NUR ---
Shift Summary: Patient can ambulate with one assist/walker/gait belt. Has generalized weakness. Is incontinent of urine. Wears briefs. Restarted saline lock to left posterior forearm. Patient started on IV iron last night. No reactions noted. On scheduled nucynta with last dose given at 2148. Has old PICC site dressing to right upper arm. Sats upper 90% on room air.
--- NOTE | 2016-07-04 14:29 | NUR ---
Significant Event:A/O X 3, SOME ANXIOUSNESS/SOB THIS AM, 02 97%RA, BREATHING TREATMENTS, INCONTENT OF URINE ALL DAY, DOES NOT CALL TO GO TO BR. CHANGING BRIEFS IN BED, PERIPHERAL IV L)FA LEAKS, NEW IV PLACED IN L)WRIST. ORDERS TO PLACE MIDLINE OR PICC ON WEDNESDAY WHEN STAFF AVAILABLE. AND DAUGHTER HERE. LS CLEAR TO COURSE, CLEARS WITH COUGH, POOR APPETITE REFUSES MEGACE. ACCUCHECKS AC/HS. GLUCOPHAGE GIVEN THIS AM. Follow up:
--- NOTE | 2016-07-05 01:00 | NUR ---
Significant Event: No open areas noted. Saline lock to lt wrist patent. Receives IV antibiotics. Up with 1 assist/gb/walker. Uses bedside commode. Continues to have respiratory tx. Pleasant & cooperative. Lungs mostly clear with slightly coarse in rt base. Sao2 was 97% on room air. She has scheduled Nucynta for pain. Plan is for picc or midline on wednesday. Follow up:
--- NOTE | 2016-07-05 13:43 | NUR ---
Significant Event:ALERT/ORIENTATED X 3, TAKES ROUTINE NUCENTA FOR PAIN, REQUESTS LIDOCAIN PATCH FOR LOWER R)BACK. PERIPHERAL IV FLUSHES TO L)WRIST, IV ANTIBIOTICS GIVEN ORDERED, HERE TO VISIT, BEDSIDE COMMODE FOR URINATION AND BOWEL MOVEMENTS, INC BOWEL X 1, BM SOFT FORMED, 1 ASSIST GB/WALKER. TAKES MEDS WHOLE IN APPLESAUCE ONE AT A TIME, Follow up:
--- NOTE | 2016-07-06 01:54 | NUR ---
Significant Event: Alert & oriented. She choose to sleep up in chair and voices she feels better. Ambulates to bathroom. Iv to lt forearm flushes well. Lungs have been clear except for in rt base. ACHS blood sugars but has not needed insulin. She has mild dyspnea when up. Follow up: Possiblity of PICC or midline today.
[2016-07-06 05:12] LABS: BASOPHIL # 0.1 K/uL (0.0-0.2); BASOPHIL % 0.4 %; HEMATOCRIT 28.3 % (33.0-46.0); HEMOGLOBIN 8.4 g/dL (10.0-15.0); IMMATURE GRANULOCYTE # 0.6 K/uL (0.0-0.3); IMMATURE GRANULOCYTE % 2.8 %; LYMPHOCYTE # 2.6 K/uL (0.8-4.0); LYMPHOCYTE % 11.5 %; MCH 24.1 pg (27.0-34.0); MCHC 29.7 gm/dL (32.0-36.5); MCV 81.1 fl (83.0-98.0); MONOCYTE # 1.6 K/uL (0.0-1.0); MONOCYTE % 7.1 %; MPV 9.6 fl (9.4-12.4); NEUTROPHIL # (ANC) 17.4 K/uL (1.8-7.8); NEUTROPHIL % 78.2 %; NRBC % 0.3 /100WBC (0-0.00); RBC 3.49 M/uL (3.50-5.50); RDW-CV 20.6 % (11.9-14.6)
[2016-07-06 05:14] LABS: PLATELET COUNT 242 K/uL (150-450); WBC 22.3 K/uL (4.0-11.0)
[2016-07-06 05:24] LABS: ANION GAP 12.9 (10.0-19.0); BLOOD UREA NITROGEN 14 mg/dL (6-24); CALCIUM 8.4 mg/dL (8.5-10.5); CHLORIDE 106 mMol/L (96-110); CO2 23 mMol/L (22-32); CREATININE 0.3 mg/dL (0.5-1.1); ESTIMATED GFR (MDRD EQUATION) > 60; SODIUM 139 mMol/L (135-145)
[2016-07-06 05:28] LABS: POTASSIUM 2.9 mMol/L (3.7-5.1)
--- NOTE | 2016-07-06 12:05 | NUR ---
Significant Event: AMBULATES WITH ASSIST OF 1 USING GAIT BELT AND WALKER. C/O NAUSEA THIS AM IV ZOFRAN GIVEN. IV IRON GIVEN WELL IV POTASSIUM AND IV ATB. SALINE LOCK IN LEFT WRIST FLUSHES EASILY. BOTH AM ACCUCHECKS WITHIN NORMAL LIMITS. NO SSI GIVEN. PRN NORCO GIVEN THIS AM PRIOR TO THERAPY AFTER ROUTINE NUCYNTA GIVEN. PLEASANT AND COOPERATIVE WITH CARES. Follow up:
--- NOTE | 2016-07-06 12:12 | NUR ---
Student nurse provided patient cares from 0600 to 1215. Karen Mulligan RN, [facility] Instructor
--- NOTE | 2016-07-06 14:11 | NUR ---
supportive visit with patient. She is receiving IV potassium today. IV iron --, IV abx q 6 hr through tomorrow, mild sliding scale insulin and med changes over the weekend. continues with OT/PT and palliative care. Faxed clinical update into Petra RN/CM at /[place] [facility] [place] for continued stay review. requested another week.
--- NOTE | 2016-07-07 03:26 | NUR ---
Significant Event: A/O. One assist/gait belt/walker to bathroom. HS accucheck was 146 and required no SSI. Joseph Atkinson, flight test shop mechanic nurse started an 18 gauge peripheral IV in L) posterior FA. Takes oral medicatin two at a time in pudding. Received Clinton at 2109 for c/o back pain. Follow up: PICC or Midline
[2016-07-07 05:43] LABS: HEMATOCRIT 31.3 % (33.0-46.0); HEMOGLOBIN 9.1 g/dL (10.0-15.0); MCH 24.3 pg (27.0-34.0); MCHC 29.1 gm/dL (32.0-36.5); MCV 83.5 fl (83.0-98.0); MPV 9.7 fl (9.4-12.4); PLATELET COUNT 284 K/uL (150-450); RBC 3.75 M/uL (3.50-5.50)
[2016-07-07 05:44] LABS: WBC 26.4 K/uL (4.0-11.0)
[2016-07-07 05:56] LABS: ANION GAP 12.5 (10.0-19.0); BLOOD UREA NITROGEN 9 mg/dL (6-24); CALCIUM 8.8 mg/dL (8.5-10.5); CHLORIDE 106 mMol/L (96-110); CO2 24 mMol/L (22-32); CREATININE 0.4 mg/dL (0.5-1.1); ESTIMATED GFR (MDRD EQUATION) > 60; MAGNESIUM 1.5 mg/dL (1.3-2.6); SODIUM 138 mMol/L (135-145)
[2016-07-07 05:58] LABS: POTASSIUM 4.5 mMol/L (3.7-5.1)
[2016-07-07 06:13] LABS: ABSOLUTE NEUTROPHIL CT (ANC) 21.9 K/uL (1.8-7.8); BANDED NEUTROPHIL # 0.8 K/uL (0.0-0.1); BANDED NEUTROPHILS % 3 %; LYMPHOCYTE # 3.4 K/uL (0.8-4.0); LYMPHOCYTE % 13 %; MONOCYTE # 0.8 K/uL (0.0-1.0); SEGMENTED NEUTROPHIL # 21.1 K/uL (1.8-7.8); SEGMENTED NEUTROPHIL % 80 %
--- NOTE | 2016-07-07 13:26 | NUR ---
left voice mail with Roger Osborne [phone] #[phone] to inquire about the fax i sent yesterday for continued stay review. (Ericka states she no longer does UR and referred me to Roger)
--- NOTE | 2016-07-07 15:37 | NUR ---
Significant Event: AMBULATES WITH ASSIST OF 1 USING GAIT BELT AND WALKER. WAS CONTINENT OF BOWEL AND BLADDER TODAY. REQUESTED ROXANOL X2 THIS SHIFT FOR SOB RELATED TO PERFORMING THERAPY. SALINE LOCK TO LOWER LEFT ARM FLUSHES EASILY WITHOUT BLOOD RETURN IV ATB INFUSED WITHOUT DIFFICULTY. AT BEDSIDE THIS AFTERNOON. PLEASANT AND COOPERATIVE WITH CARES. Follow up:
--- NOTE | 2016-07-08 03:16 | NUR ---
Significant Event: NEURO/PSYCH: A&Ox4. HEENT: WDL RESP: LS clear, RA; does become SOB with activity CARDIO: Heparin for DVT prophylaxis. VSS. IV: 18g LFA, SL ACTIVITY: x1 assist w/gb & FWW. GI/: Regaular diet, takes pills whole 2 @ a time in pudding/applesauce. Continent of bowel and bladder. SKIN: Pale, thin skin PAIN: Chronic pain. [place] 1 tab q4; Roxanol in OJ prior to working w/ PT/OT PLAN: Continue to get stronger and hopefully home with
--- NOTE | 2016-07-08 11:51 | NUR ---
I have reviewed the charting and supervised the care of Aziza, student nurses, for the shift [id number] Noon
--- NOTE | 2016-07-08 14:00 | NUR ---
CONSULT RECEIVED TO INCREASE PO INTAKE. SPOKE W/ PT AND FAMILY MEMBER. PT REPORTS NOT MUCH APPETITE LATELY AND NOT MUCH SOUNDS GOOD. DOES LIKE SCRABBLED EGGS, MASHED POTATOES & GRAVY, AND ROAST BEEF. REPORTS SHE GETS OVERWHELMED WITH THE PORTIONS AT TIMES. PT DISLIKES ENSURE. DISCUSSED OTHER SUPPLEMENT OPTIONS. PT IS WILL TO TRY APPLE ENSURE CLEAR AND VANILLA MAGIC CUPS. WILL ADD ENSURE CLEAR TID W/ MEALS. WILL CHANGE PM SNACK TO VANILLA MAGIC CUP. WILL MONITOR ACCEPTANCE AND CONTINUE WORKING W/ PT TO INC NUTRIENT INTAKE.
--- NOTE | 2016-07-08 16:35 | NUR ---
Significant Event: Patient alert and oriented. Up with 1 assist. Gets very short of breath. Peripheral IV restarted by PICC nurse due to leaking. IV iron given today with no problems. IV Zofran given prior to IV iron per patient request. Immodium given for loose stool today. Takes Roxanol in orange juice prior to therapy during the day. Has scheduled Nucenta and [place] for breakthru pain. Accuchecks with s/s insulin.
--- NOTE | 2016-07-09 03:24 | NUR ---
Significant Event:A/O. 1 assist transfer with walker. Peripheral iv to Left forearm, patent. ACHS ACCUCHECKS. Scheduled Nucynta for pain. Has [place] for breakthrough pain as needed. Requests roxanol in a shot of OJ 30 minutes before therapy. IV Zofran prior to Iron infusion. Meds whole in applesauce. Call light within reach. Follow up:
--- NOTE | 2016-07-09 13:26 | NUR ---
Significant Event: A/0 X 3, 1 ASSIST GB/WALKER, OT/PT DID SHOWER THIS AM, DOWN TO GYM AND OUTSIDE, IV PERIPHERAL L)FA FLUSHES WELL, ACCUCHECKS AC/HS, ROXANOL GIVEN IN OJ AT 0715 AND 1215 FOR SOB/ANXIETY PRIOR TO THERAPY. HERE THIS AFTERNOON. ROUTINE NUCENTA GIVEN ORDERED. Follow up:
--- NOTE | 2016-07-09 15:22 | NUR ---
tcu team meeting. nursing reports ID doctor saw patient yesterday. IV abx discontinued. IV iron will finish up tomorrow. Dietitian visited with patient this week. patient will try ensure clear and magic cup. reports no appetite and weight 88#. OT/PT indicate making progress but fatigues quickly and has anxiety before therapies. Therapy asked if patient would benefit from anxiety medication. walked 75' CGA, SBA to transfers, will need to be Mod I upon d/c and need to be able to do stairs prior to d/c to home. Have 6 steps to get into house, and then 6 steps inside house. SW to update insurance on Wednesday07-14-16.
--- NOTE | 2016-07-10 03:17 | NUR ---
Significant Event: A/Ox3. Ambulates 1 assist with walker and gait belt. Took scheduled Nucynta at hs. Takes medications whole in applesauce. Calm and cooperative with cares. Denies nausea at this time. Follow up:
--- NOTE | 2016-07-10 15:10 | NUR ---
SPOKE W/ PT RE: SUPPLEMENTS. PT DISLIKES ENSURE CLEAR AND MAGIC CUP. PT REPORTS INTAKE IS IMMPROVING. FAMILY AWARE THEY CAN BRING FOOD IN. WILL DC SUPPLEMENTS AT THIS TIME AND CONTINUE TO MONITOR.
--- NOTE | 2016-07-10 15:10 | NUR ---
Significant Event: A/0 X 3, 1 ASISST GB/WALKER, PERIPHEAL IV L)FA- IV IRON GIVEN WITHOUT DIFFICULTY. PT/OT SERVICES, DOWN TO GYM AND OUTSIDE TODAY, PRN ROXANOL GIVEN AT 0800 AND 1200- HELPS WITH SOB WITH THERAPY, PRN ZOFRAN IV GIVEN PRIOR TO IRON. HERE. ATE WELL. BLOOD SUGARS ACHS SLIDIGN SCALE INSULIN, Follow up:
--- NOTE | 2016-07-10 15:13 | NUR ---
INTAKE IMPROVED SOME THIS WEEK. NO DOBHOFF PLACED. WILL CONTINUE TO FOLLOW.
--- NOTE | 2016-07-10 21:52 | NUR ---
2016 INTRODUCTIONS MADE AND GILBERT IS EDUCATED ON STAFF THROUGHOUT NIGHT. SHE DENIES ANY NEEDS. BLOOD GLUCOSE IS ASSESSED AND CORRECTIONAL INSULIN ADMINISTERED. CALL LIGHT IS WITHIN REACH.
--- NOTE | 2016-07-11 03:36 | NUR ---
Significant Event: PATIENT IS ALERT AND ORIENTED. SLEPT WELL. HX OF ANXIETY. SL TO LFA. UP X1 WITH WALKER. VERY FEW NEEDS VERBALIZED DURING NIGHT. Follow up:
--- NOTE | 2016-07-11 16:52 | NUR ---
Significant Event: Pt is a/o x 3, pleasant and cooperative with cares. V/S stable. Lungs clear, diminished RLL. Gave prn roxanol per request, last given at 1614. 1 min assist to b/r with gait belt/walker; tolerates well. Accuchecks WNL. Saline lock D/C'd due to leakage with attempt to flush. Follow up:
--- NOTE | 2016-07-12 03:47 | NUR ---
Significant Event: A/0x3. pleasant and cooperative with cares. up with 1 assist and walker. achs accuchecks. HS accucheck 236. very few needs verbalizied during night Follow up:
--- NOTE | 2016-07-12 17:42 | NUR ---
A&O. SBA. VSS. OUTSIDE TODAY. ACHS. NO IV. NAHOMI X3. TAKES MEDS WITH APPLESAUCE AND NAHOMI WITH APPLEJUICE
--- NOTE | 2016-07-13 02:40 | NUR ---
Significant Event:A/Ox3. pleasant and cooperative with cares. up with 1 assist gait belt and walker. achs accuchecks, no insulin given at hs. very few verbalized at night. Follow up:
[2016-07-13 12:54] LABS: HEMOGLOBIN 10.9 g/dL (10.0-15.0); MCH 26.1 pg (27.0-34.0); MCHC 29.5 gm/dL (32.0-36.5); MPV 9.1 fl (9.4-12.4); RBC 4.18 M/uL (3.50-5.50)
[2016-07-13 12:57] LABS: MCV 88.5 fl (83.0-98.0); PLATELET COUNT 634 K/uL (150-450); RDW-CV 24.5 % (11.9-14.6)
[2016-07-13 13:07] LABS: BLOOD UREA NITROGEN 14 mg/dL (6-24); CALCIUM 8.3 mg/dL (8.5-10.5); CHLORIDE 104 mMol/L (96-110); CO2 24 mMol/L (22-32); CREATININE 0.6 mg/dL (0.5-1.1); ESTIMATED GFR (MDRD EQUATION) > 60; MAGNESIUM 1.6 mg/dL (1.3-2.6); PHOSPHORUS 3.3 mg/dL (2.5-4.9); SODIUM 139 mMol/L (135-145)
[2016-07-13 13:35] LABS: ABSOLUTE NEUTROPHIL CT (ANC) 27.6 K/uL (1.8-7.8); BANDED NEUTROPHIL # 1.5 K/uL (0.0-0.1); BANDED NEUTROPHILS % 5 %; LYMPHOCYTE # 0.9 K/uL (0.8-4.0); LYMPHOCYTE % 3 %; MONOCYTE # 0.6 K/uL (0.0-1.0); SEGMENTED NEUTROPHIL # 26.1 K/uL (1.8-7.8); SEGMENTED NEUTROPHIL % 90 %
--- NOTE | 2016-07-13 16:56 | NUR ---
Significant Event: A/0 X 3, 1 ASISST KEM WING, WALKS TO NURSES STATION AND BACK TO ROOM TODAY, REQUESTS PRN ROXANOL AT 0630 IN AM WITH TANIKA, BLOOD SUGARS AC/HS WITH SLIDING SCALE, Follow up:
--- NOTE | 2016-07-14 03:42 | NUR ---
Significant Event: Patient up one assist. Vitals stable. Continues with breathing treatments. Lungs slightly coarse throughout. Receives scheduled nuycynta and took roxanol with hs meds. Slept well all night. No needs voiced. Follow up: Requests zofran with am pills
--- NOTE | 2016-07-14 11:50 | NUR ---
faxed clinical update into [facility] fax [phone] at /[facility] [place]. requested SNF until end of week, as therapies indicate patient is close to meeting her goals. phone # [phone] #2 await reply from /BS and then update patient and .
--- NOTE | 2016-07-14 12:46 | NUR ---
Significant Event: Pt is pleasant, a/o x 3, cooperative with cares. V/S wnl. Had shower with therapy today. Made moderate independent in her room today. Takes roxycodone for sob. C/o nausea this am; gave zofran with relief noted. Accuchecks AC/HS with s/s insulin. Follow up:
--- NOTE | 2016-07-14 16:42 | NUR ---
and patient requested a handicap parking permit. patient signed DMV permit and SW left on chart for Palliative Care HEATING EQUIPMENT INSTALLER to sign in the am and return to patient. and patient prefer HHC upon d/c. They do not have a preference for a HHC company, but did mention [facility] out of [place]. Face to Face on chart for MD to complete for HHC upon d/c. indicates he will be applying for SSD/SSI on his wifes behalf. He has visited with Chante in [facility] office, who said to apply online. Patient signed release of records form, and SW printed out all records requested, EXCEPT for discharge summary from TCU. SW left sticky note on the release of records form for health information management to please mail d/c summary from TCU to patient when it is dictated. and patient will obtain records from the [facility] as well, as SSD/SSI will be wanting the records. and patient voiced appreciation for the help with the above requests. patient and want to be discharged on Wednesday07-17-16, if medically ok to do so.
--- NOTE | 2016-07-15 03:54 | NUR ---
Significant Event:PATIENT UP MOD I IN HER ROOM. RECEIVES ROXANOL PRN. PATIENT REQUESTING THIS AND ZOFRAN AT 0630 IN THE MORNING. PATIENT IS ALERT AND ORIENTED. PATIENT HAS BEEN PLEASANT ALL SHIFT. Follow up:
--- NOTE | 2016-07-15 14:14 | NUR ---
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 PLAN TO GO HOME WEDNESDAY. HERE. Follow up:
--- NOTE | 2016-07-16 02:02 | NUR ---
Significant Event: MOD I in room. Lungs clear. Is doing a lot better. Continues with respiratory treatments. Receives roxanol PRN. Plan is home wednesday. ACHS blood sugars with sliding scale insulin. Follow up:
--- NOTE | 2016-07-16 14:48 | NUR ---
Significant Event: A/O X 3, MOD I IN ROOM USING WALKER, BLOOD SUGARS AC/HS, ROXANOL REQUESTED EVERY 3 HOURS FOR SOB/ANXIETY, TEARFUL ABOUT GOING HOME TOMORROW, NERVOUS. ROUTINE NUCYNTA GIVEN FOR PAIN, PT/OT SERVICES. Follow up:
--- NOTE | 2016-07-16 15:28 | NUR ---
met with AVE. Plan to d/c at 1100 am tomorrow. and Hospitalists aware of plans to d/c. PRESCHOOL DISABILITY TEACHER with Hospitalists has call into . chose [facility] out of [place]. Call placed to Babita with spouse present on speaker phone [phone]. Babita took referral and they plan to see patient on Wednesday07-20-16 in the afternoon and have husbands cell phone to call to confirm time on Wednesday. Face to Face for HHC completed by Dr.George Torres - Hematology and Oncology. Orders for RN/aide/OT/PT with HHC. Faxed information to [facility] at fax [phone]. hSiraz Rivers PRESCHOOL DISABILITY TEACHER with Hospitalists is recommending patient have HHC and then f/u with her primary doctor in [place], and her family doctor can order outpatient pulmonary rehab when HHC services completed.
--- NOTE | 2016-07-17 01:43 | NUR ---
D: Nursing Discharge summary I: Nursing interventions provided to support the patient's individual plan of care R: MOBILITY-- Independent in room. NUTRITION-- Receives a regular diet. Eats 50 to 75% of meal served SKIN/INCISIONS/WOUNDS-- Needs protection to elbows SELF CARES-- Does own cares BOWEL/BLADDER-- continent RESPIRATORY-- Receives respiratory treatments. Lungs slightly coarse, but doing well. PAIN-- ALmost continuous back pain and receives pain meds. PSYCHOSOCIAL-- GOod family support COGNITION-- Alert & oriented. SPECIAL NEEDS-- Home respiratory treatments & meds TEACHING NEEDS-- Medications & respiratory tx. INFECTION CONCERNS: lungs DISMISSAL PLANS: Home with spouse.
[2016-07-17] MEDS ORDERED: LEXAPRO5 MG PO (10:03)
[2016-07-17] MEDS ORDERED: MELATONIN3 MG PO (10:08)
[2016-07-17] MEDS ORDERED: NUCYNTA50 MG PO ×2 (10:14→11:09)
[2016-07-17] MEDS ORDERED: DULERA 200 MCG/51 EA INH ×2 (10:17→10:20)
[2016-07-17] MEDS ORDERED: NORCO 5-325 TA1 EACH PO (10:23)
[2016-07-17] MEDS ORDERED: GLUCOSE4 GM PO (10:27)
[2016-07-17] MEDS ORDERED: MORPHINE 20MG/ML PO (10:29)
[2016-07-17] MEDS ORDERED: ZOFRAN4 MG PO (10:31)
--- NOTE | 2016-07-17 18:30 | NUR ---
Significant Event: MOD I IN HER ROOM. EXPLAINED DISCHARGE INSTRUCTIONS TO AND PATIENT. PATIENT SIGNED INVENTORY RECORD WELL TEACHING SHEETS AND DISCHARGE INSTRUCTIONS. REVIEWED ALL APPOINTMENTS AND MEDICATIONS. ASSISTED TO FRONT LOBBY AND INTO HUSBANDS CAR FOR TRANSPORT TO HOME. Follow up:
== END 2016-07-17 12:15 | disposition home health service (06) | DRG 871 ==
LOC: GSNF 14:36
PROVIDERS: Family Medicine; Internal Medicine; Nurse Practitioner Family; ADMIT Internal Medicine
PROC: F07Z9ZZ Gait Training/Functional Ambulation Treatment (ICD-10-PCS; principal; 2016-06-30)
PROC: F08Z4ZZ Home Management Treatment (ICD-10-PCS; principal; 2016-06-30)
DX: A40.9 Streptococcal sepsis, unspecified (principal); E43 Unspecified severe protein-calorie malnutrition; J96.20 Acute and chronic respiratory failure, unspecified whether with hypoxia or hypercapnia; J86.9 Pyothorax without fistula; J15.9 Unspecified bacterial pneumonia; D50.9 Iron deficiency anemia, unspecified; E11.9 Type 2 diabetes mellitus without complications; Z68.1 Body mass index [BMI] 19.9 or less, adult; K59.00 Constipation, unspecified; M40.209 Unspecified kyphosis, site unspecified; J44.9 Chronic obstructive pulmonary disease, unspecified; F32.9 Major depressive disorder, single episode, unspecified; F41.9 Anxiety disorder, unspecified; G89.29 Other chronic pain; Z79.84 Long term (current) use of oral hypoglycemic drugs; Z79.52 Long term (current) use of systemic steroids; E03.9 Hypothyroidism, unspecified; Z66 Do not resuscitate; R65.20 Severe sepsis without septic shock; R63.0 Anorexia; E87.6 Hypokalemia; D72.829 Elevated white blood cell count, unspecified; Z79.891 Long term (current) use of opiate analgesic
CPT/HCPCS: C1751; J0171; J1200; J1644; J1720; J2185; J2405; J2916; J3480; J7030; J7040; J7050; J7512; J7612; Q0162